=== PATIENT | female | born 1945 | race Caucasian/White ===

== ENCOUNTER 2018-02-18 16:53 | Inpatient (IN) | payer OTHER, MEDICARE ==
[~2018-02-18] VITALS: Ht 160 cm; Wt 82.6 kg
[~2018-02-18 16:53] MED LIST: ASPIRIN81 MG PO; BACTRIM 400 MG-1 TAB PO; BACTRIM DS 8001 TAB PO; BENADRYL 50 MG50 MG PO; CALCIUM ANTAC1000 MG PO; MEDROL4 M2 PO; MIRALAX17 GM PO; PREMARIN 0.3MG0.3 MG PO; PREMPRO LOW DOS1 TAB PO; PROAIR HFA0.09 MG/Ac INH; PROTONIX 40MG T40 MG PO; SINGULAIR10 MG PO; SYMBICORT 80/4.1 PUF INH; SYNTHROID0.1 MG PO; TESSALON PERLE100 M1 PO; TOPROL XL 25MG25 MG PO; VESICARE 5MG5 MG PO; VITAMIN D1000 IU PO; ZITHROMAX250 M2 PO
[2018-02-18 17:36] LABS: ABSOLUTE BASOPHIL COUNT 0 /CUMM (0.0-0.2); ABSOLUTE EOSINOPHIL COUNT 0 /CUMM (0.0-0.7); ABSOLUTE GRANULOCYTE CT 4.4 /CUMM (1.4-6.5); ABSOLUTE LYMPH COUNT 0.9 /CUMM (1.2-3.4); ABSOLUTE MONOCYTE COUNT 0.8 /CUMM (0.10-0.60); BASOPHIL % 0.3 % (0.0-2.0); EOSINOPHIL % 0.7 % (0-5); GRANULOCYTE % 71.7 % (42.2-75.2); HEMATOCRIT 41.5 % (37-47); MEAN CORPUSCULAR HGB 32.5 PG (27.0-31.0); MEAN CORPUSCULAR HGB CONC 33.8 G/DL (33.0-37.0); MEAN PLATELET VOLUME 7.3 FL (7.4-10.4); PLATELET COUNT 307 /CUMM (130-400); RBC DISTRIBUTION WIDTH 12.8 % (11.5-14.5); RED BLOOD CELL CT 4.32 /CUMM (4.20-5.40); WHITE BLOOD CELL COUNT 6.2 /CUMM (4.8-10.8)
--- NOTE | 2018-02-18 19:29 | CT SCAN REPORT ---
EXAMINATION: CT ABDOMEN AND PELVIS WITHOUT CONTRAST CLINICAL INFORMATION: Bilateral groin pain COMPARISON: None TECHNIQUE: Multidetector volumetric imaging was performed from the superior aspect of the liver through the pubic symphysis. Sagittal and coronal reformatted images were obtained on the technologist's workstation. DLP: 543 mGy-cm FINDINGS: LUNG BASES: The visualized lung bases are unremarkable. LIVER, GALLBLADDER, AND BILIARY TREE: Mild diffuse fatty infiltration of the liver. Geographic region of relative hyperattenuation along the superior, central aspect of the gallbladder fossa likely represents focal fatty sparing. No intrahepatic biliary ductal dilatation. The gallbladder is unremarkable with no evidence of radiopaque gallstones, gallbladder wall thickening, or obvious pericholecystic inflammatory changes. PANCREAS: Unremarkable. SPLEEN: Unremarkable. ADRENAL GLANDS: Unremarkable. KIDNEYS AND URETERS: The kidneys are normal in size, shape, and attenuation. No hydronephrosis, hydroureter, or calculi seen. No perinephric stranding. BLADDER: Unremarkable. GASTROINTESTINAL TRACT: No focal inflammatory process or obstruction. ABDOMINAL WALL: No significant hernia is appreciated. LYMPH NODES: Normal. VASCULAR: Extensive atherosclerotic calcifications. PELVIC VISCERA: Unremarkable. OSSEOUS STRUCTURES: No acute osseous abnormality. Extensive facet arthrosis of the lower lumbar spine. IMPRESSION: No focal inflammatory process or obstruction. Extensive atherosclerotic calcifications of the abdominal aorta. Mild diffuse fatty infiltration of the liver. No renal or ureteral calculi. No hydronephrosis.
--- NOTE | 2018-02-18 20:23 | CT SCAN REPORT ---
CT ANGIOGRAM NECK WITH CONTRAST CT ANGIOGRAM BRAIN WITH CONTRAST CLINICAL INFORMATION: Severe headache, weakness, and tremors. Neck pain radiating to the head. COMPARISON: Cervical spine MRI 07/31/2017 and brain MRI 11/24/2016. TECHNIQUE: Test bolus sequences followed by intravenous administration 95 mL of Optiray 320. Helical imaging was performed in the axial plane from the thoracic inlet to the skull vertex. Delayed postcontrast imaging of the head was also performed. The data was processed at the time study technologist workstation for generation of MIP sequences. Angled MIPs and volume rendered reformatted images were also generated at an offline 3D workstation. Stenoses are assessed in accordance with NASCET criteria unless otherwise indicated. FINDINGS: BRAIN: Limited assessment for blood products on the noncontrast study secondary to significant patient motion artifact. Global cerebral volume loss and mild chronic microangiopathy. There is no hydrocephalus, extra-axial surface collection, midline shift, or other herniation pattern. Yang to white matter differentiation is diffusely maintained without evidence of an evolved acute territorial infarct. The basilar cisterns are preserved. No significant soft tissue abnormality. No acute osseous abnormality. There is mild mucosal thickening within the right maxillary sinus. The remaining paranasal sinuses and the mastoid air cells are clear. CERVICAL SOFT TISSUES AND LUNG APICES: Imaged upper lungs are clear. No significant soft tissue findings within the neck. The patient is status post ACDF at the C4-C7 levels. There is severe disc volume loss at the junctional C7-T1 level and moderate disc volume loss at the junctional C3-C4 level. Severe left-sided hypertrophic facet arthropathy at C3-C4 encroaching upon the left neural foramen. Central canal not well assessed with CT. NECK CTA: Left vertebral artery arises from the aortic arch. Calcific atherosclerotic disease results in a moderate stenosis of the left vertebral artery origin. There is a moderate 50-60% stenosis involving the proximal left subclavian artery. The right vertebral artery is dominant. No significant ostial stenosis is visualized on either side. Both vertebral arteries are widely patent throughout their extracranial cervical course. Calcific atherosclerotic disease results in a 50% stenosis of the distal left common carotid artery and a less than 50% stenosis of the proximal left internal carotid artery. There is no significant stenosis involving the right proximal internal carotid artery. BRAIN CTA: There is normal opacification of major intracranial arteries. No focal flow-limiting stenosis, discrete proximal large artery occlusion, or saccular intradural aneurysm is identified. Timing of the contrast bolus allows assessment of the major dural venous sinuses, which all opacify normally. IMPRESSION: - No definite acute intracranial findings though assessment for blood products is limited given the degree of significant motion artifact on the noncontrast study. Global cerebral volume loss and mild chronic microangiopathy. - No evidence of arterial dissection. No acute arterial occlusions. - Calcific atherosclerotic disease results in a moderate stenosis of the left vertebral artery origin. There is a moderate 50-60% stenosis involving the proximal left subclavian artery. - Calcific atherosclerotic disease results in a 50% stenosis of the distal left common carotid artery and a less than 50% stenosis of the proximal left internal carotid artery. - The patient is status post ACDF at the C4-C7 levels. There is severe disc volume loss at the junctional C7-T1 level and moderate disc volume loss at the junctional C3-C4 level. Severe left-sided hypertrophic facet arthropathy at C3-C4 encroaching upon the left neural foramen. Central canal not well assessed with CT.
--- NOTE | 2018-02-18 20:55 | ED GENERAL ADULT ---
History of Present Illness General Chief Complaint: General Adult Stated Complaint: MURCIA, UPPER THIGH PAIN, LOW BACK PAIN Source: patient Exam Limitations: no limitations Vital Signs & Intake/Output Vital Signs & Intake/Output Vital Signs Date Time Temp Pulse Resp B/P B/P Pulse O2 O2 Flow FiO2 Mean Ox Delivery Rate 02/19 0020 97.8 62 20 152/64 96 Room Air 02/18 2334 97.9 59 18 174/88 97 02/18 2153 98.0 90 16 166/81 97 Room Air 02/18 2039 69 16 168/98 97 Room Air 02/18 1707 97.6 71 15 166/70 97 Room Air Room Air ED Intake and Output 02/19 0000 02/18 1200 Intake Total 1000 Output Total Balance 1000 Intake, IV 1000 Patient 180 lb Weight Weight Reported by Patient Measurement Method Allergies Coded Allergies: ELVA Inhibitors (DIZZINESS, NAUSEA 02/18/18) valsartan (DIZZY, NAUSEA 02/18/18) Reconcile Medications Albuterol Sulfate (Proair Hfa) 90 MCG HFA.AER.AD 2 PUF INH AD PRN ASTHMA ( Reported) Alprazolam 0.25 MG TABLET 1 TAB PO AD PRN ANXIETY (Reported) Aspirin (Ecotrin*) 81 MG TABLET.DR 1 TAB PO DAILY HEART/BLOOD (Reported) Azelastine/Fluticasone (Dymista Nasal [place]) (Unknown Strength) SPRAY.PUMP ( Unknown Dose) NASB AD UNKNOWN (Reported) Cholecalciferol (Vitamin D3) (Vitamin D) 2,000 UNIT TABLET 1 TAB PO DAILY SUPPLEMENT (Reported) Cyanocobalamin (Vitamin B-12) 1,000 MCG TABLET 1 TAB PO DAILY SUPPLEMENT ( Reported) Esomeprazole (Nexium) 40 MG CAPSULE.DR 1 CAP PO DAILY GI (Reported) Estrogens, Conjugated (Premarin) 0.3 MG TABLET 1 TAB PO DAILY HRT (Reported) Fluticasone-Salmeterol (Advair 100-50 Diskus) 100 MCG-50 MCG/DOSE BLST.W.DEV 1 PUF INH BID RESP. (Reported) Glycopyrrolate 2 MG TABLET 1 TAB PO DAILY MUCUS (Reported) Hydralazine HCl 100 MG TABLET 1 TAB PO TID BP (Reported) Hydrochlorothiazide 25 MG TABLET 1 TAB PO DAILY BP (Reported) Levothyroxine Sodium 112 MCG TABLET 1 TAB PO DAILY THYROID (Reported) Metoprolol Succ XL (Toprol Xl) 50 MG TAB 1 TAB PO DAILY HEART/BP (Reported) Montelukast Sodium (Singulair) 10 MG TABLET 1 TAB PO DAILY ALLERGIES/ASTHMA ( Reported) Triage Note: PT TO ED FOR C/C OF HEADACHE (PRESSURE), NECK PAIN AND BILATERAL GROIN PAIN. PT REPORTS SYMPTOMS STARTED MILDLY LAST NIGHT BUT THEN PROGRESSIVELY GOT WORSE. PT TOOK ADVIL TODAY WITHOUT IMPROVEMENT. RECENT DOSE INCREASE OF BP MEDS. Triage Nurses Notes Reviewed? yes Onset: Gradual Duration: day(s): Timing: recent history Injury Environment: home Severity: mild, moderate Modifying Factors: Improves With: rest. HPI: 72 yo woman h/o htn, multiple medical problems, presents with a constellation of symptoms, including headache, dizziness, weakness, difficulty ambulating, left sided chest pain which has been intermittent, lower abdominal, bilateral hip and lower back pain. She notes her symptoms have been getting worse over the past several days. She notes that her physician has been adjusting her blood pressure medications lateley. "The took me off everything... started me on valsartan, but that didn' t work, and so put me back on my old medications." She notes no fever, chills, dyspnea. She is otherwise well. Past History Travel History Traveled to [place] past 21 day No Medical History Any Pertinent Medical History? see below for history Cardiovascular: hypertension Respiratory: asthma Gastrointestinal: constipation, diverticulitis, GERD, irritable bowel syndrome Renal: urinary incontinence Endocrine: hypothyroidism Other Medical Hx: rosacea History of MRSA: No History of VRE: No History of CDIFF: No Surgical History Surgical History: non-contributory Psychosocial History Who do you live with Significant Other Services at Home None What is your primary language Jamaican Tobacco Use: Quit >30 days ago ETOH Use: denies use Illicit Drug Use: denies illicit drug use Family History Family History, If Any: Relation not specified for: FH: heart disease Hx Contributory? No Review of Systems Review of Systems Constitutional: Reports: no symptoms. EENTM: Reports: no symptoms. Respiratory: Reports: no symptoms. Cardiovascular: Reports: no symptoms. GI: Reports: no symptoms. Genitourinary: Reports: no symptoms. Musculoskeletal: Reports: no symptoms. Skin: Reports: no symptoms. Neurological/Psychological: Reports: no symptoms. Hematologic/Endocrine: Reports: no symptoms. Immunologic/Allergic: Reports: no symptoms. All Other Systems: Reviewed and Negative Physical Exam Physical Exam General Appearance: well developed/nourished, mild distress Head: atraumatic, normal appearance Eyes: Bilateral: normal appearance, PERRL, EOMI. Ears, Nose, Throat: normal pharynx, normal ENT inspection, slightly dry mucosa Neck: normal inspection, supple, full range of motion Respiratory: normal breath sounds, no respiratory distress, quiet respiration, lungs clear, left parasternal tenderness to palpation Cardiovascular: regular rate/rhythm Back: muscle spasm, no vertebral tenderness Extremities: normal inspection Neurologic/Psych: no motor/sensory deficits Skin: intact, normal color, warm/dry Core Measures ACS in differential dx? No CVA/TIA Diagnosis: No Sepsis Present: No Sepsis Focused Exam Completed? No Progress Differential Diagnoses I considered the following diagnoses in my evaluation of the patient: musculoskeletal pain vs angina vs other. Plan of Care: Orders Procedure Date/time Status Heart Healthy Diet 02/19 B Active CBC WITHOUT DIFFERENTIAL 02/19 0600 Active BASIC ELECTROLYTES PLUS BUN&CR 02/19 0600 Active TROPONIN LEVEL 02/19 0500 Active EKG 02/19 0500 Active URINE LYTES, SPOT 02/19 0221 Active Lab Add-on Test 02/19 0052 Active Weight 02/19 0027 Active Vital Signs 02/19 0027 Complete Teach/Educate 02/197 Active Pain Treatment and Response 02/19 0027 Active Nutritional Intake, Monitor 02/19 0027 Active Isolation 02/19 0027 Active Intake & Output 02/19 0027 Complete Patient Care Conference 02/197 Active Activity/Ambulation 02/197 Active Lab Add-on Test 02/19 UNK Active Precautions 02/19 UNK Active NIH Stroke Scale 02/19 UNK Active SODIUM 02/18 2330 Complete CREATINE PHOSPHOKINASE 02/18 2330 Complete TROPONIN LEVEL 02/18 2227 Complete EKG 02/18 2227 Active Lab Add-on Test 02/18 2225 Active PT Evaluate & Treat 02/19 2224 Active Saline Lock 02/19 2224 Active Pathway - chart 02/19 2224 Active House Staff 02/19 2224 Active Patient Data 02/19 2224 Active Code Status 02/19 2224 Active Saline Lock 02/19 2144 Active Misc Message 02/19 2144 Active ED Holding Orders 02/19 2144 Active Admit to inpatient 02/19 2144 Active Saline Lock 02/18 2134 Active Misc Message 02/18 2134 Active ED Holding Orders 02/18 2134 Active Admit to inpatient 02/18 2134 Active Vital Signs 02/18 2134 Active Code Status 02/18 2134 Complete THYROID STIMULATING HORMONE 02/18 1730 Complete PHOSPHORUS 02/18 1730 Complete SERUM OSMOLALITY 02/18 1730 Complete MAGNESIUM 02/18 1730 Complete FREE T4 02/18 1730 Complete URINALYSIS 02/18 171 Active TROPONIN LEVEL 02/18 171 Complete WESTERGREN SED RATE 02/18 171 Complete COMPREHENSIVE METABOLIC PANEL 02/18 171 Complete CBC WITHOUT DIFFERENTIAL 02/18 171 Complete EKG 02/18 1716 Active VTE Mechanical Prophylaxis 02/18 UNK Active Vital Signs 02/18 UNK Complete MISTAKE 02/18 UNK Active Telemetry/Batch Freezer Operator 02/18 UNK Active Intake & Output 02/18 UNK Active Current Medications Sig/Ava Start time Last Medication Dose Stop Time Status Admin Budesonide/ 2 PUF BID 02/19 0900 AC Formoterol Fumarate (SYMBICORT) Enoxaparin Sodium 40 MG DAILY 02/19 09 AC (Lovenox) Metoprolol Succinate 50 MG DAILY 02/19 0900 AC (Toprol Xl) Levothyroxine Sodium 0.112 MG DAILY AC 02/19 0700 AC (Synthroid) Omeprazole 40 MG DAILY AC 02/19 0700 AC (Prilosec) Albuterol Sulfate 2 PUF Q4P PRN 02/18 2315 AC (Ventolin) Alprazolam 0.25 MG DAILY NEEDED PRN 02/18 2315 AC (Xanax) 02/25 2314 Hydralazine HCl 100 MG TID 02/18 230 AC (Apresoline) Acetaminophen 650 MG Q6P PRN 02/18 2230 AC (Tylenol) Hydrocodone Bitart/ 1 TAB Q8P PRN 02/18 2230 AC Acetaminophen (Vicodin) Oxycodone/ 2 TAB Q8P PRN 02/18 2230 AC 02/19 Acetaminophen 0058 (Percocet) Sodium Chloride 1,000 ML ONCE ONE 02/18 2130 AC 02/18 (Normal Saline 0.9%) 02/199 2149 Laboratory Tests 02/18/18 2330: Creatine Kinase 113, Troponin I 0.01 02/18/18 1730: Anion Gap 13, Estimated GFR > 60, BUN/Creatinine Ratio 20.0, Glucose 96, Serum Osmolality 254 L, Calcium 10.6 H, Phosphorus 4.0, Magnesium 1.6, Total Bilirubin 1.3, AST 24, ALT 29, Alkaline Phosphatase 53, Troponin I < 0.01, Total Protein 7.8, Albumin 4.8, Globulin 3.0, Albumin/Globulin Ratio 1.6, TSH 0.690, Free T4 2.61 H, CBC w Diff NO MAN DIFF REQ, RBC 4.32, MCV 96.0, MCH 32.5 H, MCHC 33.8, RDW 12.8, MPV 7.3 L, Gran % 71.7, Lymphocytes % 14.6 L, Monocytes % 12.7 H, Eosinophils % 0.7, Basophils % 0.3, Absolute Granulocytes 4.4, Absolute Lymphocytes 0.9 L, Absolute Monocytes 0.8 H, Absolute Eosinophils 0, Absolute Basophils 0, ESR Westergren 10 Diagnostic Imaging: Viewed by Me: CT Scan. Discussed w/RAD: CT Scan. Radiology Impression: PATIENT: Gely GRAY PRESENT AGE: 72 PATIENT ACCOUNT NO: [id number] : 44 LOCATION: [facility] ORDERING PHYSICIAN: Jarrod GORE SERVICE DATE: 02/18/18 EXAM TYPE: CAT - CT ABD & PELVIS W/O IV CONTRAS EXAMINATION: CT ABDOMEN AND PELVIS WITHOUT CONTRAST CLINICAL INFORMATION: Bilateral groin pain COMPARISON: None TECHNIQUE: Multidetector volumetric imaging was performed from the superior aspect of the liver through the pubic symphysis. Sagittal and coronal reformatted images were obtained on the technologist's workstation. DLP: 543 mGy-cm FINDINGS: LUNG BASES : The visualized lung bases are unremarkable. LIVER, GALLBLADDER, AND BILIARY TREE: Mild diffuse fatty infiltration of the liver. Geographic region of relative hyperattenuation along the superior, central aspect of the gallbladder fossa likely represents focal fatty sparing. No intrahepatic biliary ductal dilatation. The gallbladder is unremarkable with no evidence of radiopaque gallstones, gallbladder wall thickening, or obvious pericholecystic inflammatory changes. PANCREAS: Unremarkable. SPLEEN: Unremarkable. ADRENAL GLANDS: Unremarkable. KIDNEYS AND URETERS: The kidneys are normal in size, shape, and attenuation. No hydronephrosis, hydroureter, or calculi seen. No perinephric stranding. BLADDER: Unremarkable. GASTROINTESTINAL TRACT: No focal inflammatory process or obstruction. ABDOMINAL WALL: No significant hernia is appreciated. LYMPH NODES: Normal. VASCULAR: Extensive atherosclerotic calcifications. PELVIC VISCERA: Unremarkable. OSSEOUS STRUCTURES: No acute osseous abnormality. Extensive facet arthrosis of the lower lumbar spine. IMPRESSION: No focal inflammatory process or obstruction. Extensive atherosclerotic calcifications of the abdominal aorta. Mild diffuse fatty infiltration of the liver. No renal or ureteral calculi. No hydronephrosis. DICTATED BY: Yobany Beal MD DATE/ TIME DICTATED:02/18/181919 FOOD SERVICE DIRECTOR:RAÚL DATE/TIME TRANSCRIBED: 02/18/181919 CONFIDENTIAL, DO NOT COPY WITHOUT APPROPRIATE AUTHORIZATION. < Electronically signed in Other Vendor System> SIGNED BY: Yobany Beal MD 02/18/181928, PATIENT: Gely GRAY PRESENT AGE: 72 PATIENT ACCOUNT NO: [id number] : 44 LOCATION: [facility] ORDERING PHYSICIAN: Jarrod GORE SERVICE DATE: 02/18/18 EXAM TYPE: CAT - CT HEAD ANGIOGRAM; CT NECK ANGIOGRAM CT ANGIOGRAM NECK WITH CONTRAST CT ANGIOGRAM BRAIN WITH CONTRAST CLINICAL INFORMATION: Severe headache, weakness, and tremors. Neck pain radiating to the head. COMPARISON: Cervical spine MRI 03/2017 and brain MRI 11/24/2016. TECHNIQUE: Test bolus sequences followed by intravenous administration 95 mL of Optiray 320. Helical imaging was performed in the axial plane from the thoracic inlet to the skull vertex. Delayed postcontrast imaging of the head was also performed. The data was processed at the system technologist workstation for generation of MIP sequences. Angled MIPs and volume rendered reformatted images were also generated at an offline 3D workstation. Stenoses are assessed in accordance with NASCET criteria unless otherwise indicated. FINDINGS: BRAIN: Limited assessment for blood products on the noncontrast study secondary to significant patient motion artifact. Global cerebral volume loss and mild chronic microangiopathy. There is no hydrocephalus , extra-axial surface collection, midline shift, or other herniation pattern. Yang to white matter differentiation is diffusely maintained without evidence of an evolved acute territorial infarct. The basilar cisterns are preserved. No significant soft tissue abnormality. No acute osseous abnormality. There is mild mucosal thickening within the right maxillary sinus. The remaining paranasal sinuses and the mastoid air cells are clear. CERVICAL SOFT TISSUES AND LUNG APICES: Imaged upper lungs are clear. No significant soft tissue findings within the neck. The patient is status post ACDF at the C4-C7 levels. There is severe disc volume loss at the junctional C7-T1 level and moderate disc volume loss at the junctional C3-C4 level. Severe left-sided hypertrophic facet arthropathy at C3-C4 encroaching upon the left neural foramen. Central canal not well assessed with CT. NECK CTA: Left vertebral artery arises from the aortic arch. Calcific atherosclerotic disease results in a moderate stenosis of the left vertebral artery origin. There is a moderate 50-60% stenosis involving the proximal left subclavian artery. The right vertebral artery is dominant. No significant ostial stenosis is visualized on either side. Both vertebral arteries are widely patent throughout their extracranial cervical course. Calcific atherosclerotic disease results in a 50% stenosis of the distal left common carotid artery and a less than 50% stenosis of the proximal left internal carotid artery. There is no significant stenosis involving the right proximal internal carotid artery. BRAIN CTA: There is normal opacification of major intracranial arteries. No focal flow -limiting stenosis, discrete proximal large artery occlusion, or saccular intradural aneurysm is identified. Timing of the contrast bolus allows assessment of the major dural venous sinuses, which all opacify normally. IMPRESSION: - No definite acute intracranial findings though assessment for blood products is limited given the degree of significant motion artifact on the noncontrast study. Global cerebral volume loss and mild chronic microangiopathy. - No evidence of arterial dissection. No acute arterial occlusions. - Calcific atherosclerotic disease results in a moderate stenosis of the left vertebral artery origin. There is a moderate 50-60% stenosis involving the proximal left subclavian artery. - Calcific atherosclerotic disease results in a 50% stenosis of the distal left common carotid artery and a less than 50% stenosis of the proximal left internal carotid artery. - The patient is status post ACDF at the C4-C7 levels. There is severe disc volume loss at the junctional C7-T1 level and moderate disc volume loss at the junctional C3-C4 level. Severe left-sided hypertrophic facet arthropathy at C3-C4 encroaching upon the left neural foramen. Central canal not well assessed with CT. DICTATED BY: Donal Barbosa MD DATE/TIME DICTATED:02/18/181958 FOOD SERVICE DIRECTOR:RAÚL DATE/TIME TRANSCRIBED:02/18/181958 CONFIDENTIAL, DO NOT COPY WITHOUT APPROPRIATE AUTHORIZATION. <Electronically signed in Other Vendor System> SIGNED BY: Donal Barbosa MD 02/18/182022 Initial ED EKG: none Departure Departure Disposition: STILL A PATIENT Condition: Stable Clinical Impression Primary Impression: Hyponatremia Secondary Impressions: Chest pain Referrals: Juan Jose Escalante MD (PCP/Family) Departure Forms: Customer Survey General Discharge Information Admission Note Spoke With: Bishnu Mora MD Documentation of Exam: Documentation of any treatments & extenuating circumstances including Concerns Regarding Discharge (functional status, medication knowledge or non-compliance, living conditions, etc.) that warrant an admission rather than observation: pt with several constitutional symptoms, with a sodium 121, exam notable for slightly dry mucosa.... pt to be admitted for electrolyte management. Critical Care Note Critical Care Note Critical Care Time: non-applicable
[2018-02-18] MEDS ORDERED: DYMISTA NASAL S23 GM NASB (21:33)
[2018-02-18] MEDS ORDERED: LEVOTHYROXINE112 MCG PO (21:34)
[2018-02-18] MEDS ORDERED: ADVAIR 100-501 EACH INH (21:34)
[2018-02-18] MEDS ORDERED: PREMARIN0.3 M1 PO (21:34)
[2018-02-18] MEDS ORDERED: SINGULAIR10 M1 PO (21:34)
[2018-02-18] MEDS ORDERED: HYDRALAZINE HC100 M1 PO (21:35)
[2018-02-18] MEDS ORDERED: HYDROCHLOROTHIA25 M1 PO (21:35)
[2018-02-18] MEDS ORDERED: NEXIUM40 M1 PO (21:35)
[2018-02-18] MEDS ORDERED: TOPROL XL50 M1 PO (21:35)
[2018-02-18] MEDS ORDERED: VITAMIN B-121000 MC3 PO (21:36)
[2018-02-18] MEDS ORDERED: PROAIR HFA8.5 GM INH (21:36)
[2018-02-18] MEDS ORDERED: ASPIRIN EC81 M1 PO (21:36)
[2018-02-18] MEDS ORDERED: VITAMIN D2000 UNI1 PO (21:36)
[2018-02-18] MEDS ORDERED: ALPRAZOLAM0.25 M1 PO (21:37)
[2018-02-18] MEDS ORDERED: GLYCOPYRROLATE2 MG PO (21:38)
--- NOTE | 2018-02-18 23:09 | History & Physical ---
Elvin PORTILLO,Lucia 02/18/18 6446: General Information and HPI MD Statement: I have seen and personally examined Gely GRAY and documented this H&P. The patient is a 72 year old F who presented with a patient stated chief complaint of [diffuse pain, weakness, lightheadedness]. Source of Information: patient, family, old records Exam Limitations: no limitations History of Present Illness: Patient is a 72-year-old female with past medical history of hypertension, hypothyroidism, asthma, GERD, diverticulitis, IBS, constipation, chronic UTI, rosacea, degenerative disc disease of the lumbar region, status post cervical fusion presenting this admission with multiple complaints of head, neck, groin, chest pain and lethargy. Patient reports she has been feeling weak and lethargic over the past day which has worsened on day of admission. Patient reports diffuse head, neck and groin pain. Patient also reports that she has been having lightheadedness since the beginning of this year after having cranial nerve palsy. Patient is being followed by Dr. Hernandez and is not on any medications at this time. Patient states this lightheadedness is constant when she is walking or standing and patient has had difficulty walking. Patient reports that her head and neck pain start at the back of her head and radiate up and down. Describes the pain as a constant pressure sensation radiating into 6 out of 10 in severity. Patient reports taking Advil and Tylenol for the pain which has not helped. Patient was given morphine in the ED and reports that has helped. Patient also reports that she was having left breast pain and was seen by her material crew supervisor, Esteban Davey MD. Patient describes the pain as nonradiating pressure which does not change with exertion. Reports that she is not currently having this pain. Reports pain is accompanied with palpitations. Denies shortness of breath, nausea/vomiting, diaphoresis. Patient states that her medication, hydralazine was increased from 50 mg 3 times a day to 100 mg 3 times a day. Patient reports that she has only taken 100 mg on day of admission. Allergies/Medications Allergies: Coded Allergies: ELVA Inhibitors (DIZZINESS, NAUSEA 02/18/18) valsartan (DIZZY, NAUSEA 02/18/18) Home Med list Albuterol Sulfate (Proair Hfa) 90 MCG HFA.AER.AD 2 PUF INH AD PRN ASTHMA ( Reported) Alprazolam 0.25 MG TABLET 1 TAB PO AD PRN ANXIETY (Reported) Aspirin (Ecotrin*) 81 MG TABLET.DR 1 TAB PO DAILY HEART/BLOOD (Reported) Azelastine/Fluticasone (Dymista Nasal Chunky) (Unknown Strength) SPRAY.PUMP ( Unknown Dose) NASB AD UNKNOWN (Reported) Cholecalciferol (Vitamin D3) (Vitamin D) 2,000 UNIT TABLET 1 TAB PO DAILY SUPPLEMENT (Reported) Cyanocobalamin (Vitamin B-12) 1,000 MCG TABLET 1 TAB PO DAILY SUPPLEMENT ( Reported) Esomeprazole (Nexium) 40 MG CAPSULE.DR 1 CAP PO DAILY GI (Reported) Estrogens, Conjugated (Premarin) 0.3 MG TABLET 1 TAB PO DAILY HRT (Reported) Fluticasone-Salmeterol (Advair 100-50 Diskus) 100 MCG-50 MCG/DOSE BLST.W.DEV 1 PUF INH BID RESP. (Reported) Glycopyrrolate 2 MG TABLET 1 TAB PO DAILY MUCUS (Reported) Hydralazine HCl 100 MG TABLET 1 TAB PO TID BP (Reported) Hydrochlorothiazide 25 MG TABLET 1 TAB PO DAILY BP (Reported) Levothyroxine Sodium 112 MCG TABLET 1 TAB PO DAILY THYROID (Reported) Metoprolol Succ XL (Toprol Xl) 50 MG TAB 1 TAB PO DAILY HEART/BP (Reported) Montelukast Sodium (Singulair) 10 MG TABLET 1 TAB PO DAILY ALLERGIES/ASTHMA ( Reported) Past History Travel History Traveled to [place] past 21 day No Medical History Cardiovascular: hypertension Respiratory: asthma Gastrointestinal: constipation, diverticulitis, GERD, irritable bowel syndrome Renal: urinary incontinence Endocrine: hypothyroidism Other Medical Hx: rosacea History of MRSA: No History of VRE: No History of CDIFF: No Surgical History Surgical History: non-contributory Past Family/Social History Family History Relations & Conditions if any Relation not specified for: FH: heart disease Psychosocial History Services at Home: None ETOH Use: denies use Illicit Drug Use: denies illicit drug use Review of Systems Review of Systems Constitutional: Reports: see HPI. Exam & Diagnostic Data Last 24 Hrs of Vital Signs/I&O Vital Signs Date Time Temp Pulse Resp B/P B/P Pulse O2 O2 Flow FiO2 Mean Ox Delivery Rate 02/19 0723 97.6 56 20 136/70 93 Room Air 02/19 0020 97.8 62 20 152/64 96 Room Air 02/18 2334 97.9 59 18 174/88 97 02/18 2153 98.0 90 16 166/81 97 Room Air 02/18 2039 69 16 168/98 97 Room Air 02/18 1707 97.6 71 15 166/70 97 Room Air Room Air Intake & Output 02/19 0800 02/19 0000 02/18 1600 Intake Total 120 1000 Output Total 550 Balance -430 1000 Intake, IV 1000 Intake, Oral 120 Output, Urine 550 Patient 180 lb Weight Weight Reported by Patient Measurement Method Physical Exam General Appearance Alert, Oriented X3, Cooperative, No Acute Distress Skin No Rashes Skin Temp/Moisture Exam: Warm/Dry HEENT Atraumatic, PERRLA, EOMI, Mucous Membr. moist/pink Neck Supple, No JVD, No thryomegaly, +2 Carotid Pulse wo Bruit Lymphatic Cervical nl Cardiovascular Regular Rate, Normal S1, Normal S2, No Murmurs Lungs Clear to Auscultation, Normal Air Movement Abdomen Normal Bowel Sounds, Soft, No Tenderness, No Hepatospenomegaly, No Masses Neurological Normal Speech, Strength at 5/5 X4 Ext, Normal Tone, Sensation Intact, Cranial Nerves 3-12 NL, Reflexes 2+ Extremities No Clubbing, No Cyanosis, No Edema, Normal Pulses, No Tenderness/ Swelling Vascular Normal Pulses, Pulses Symmetrical Last 24 Hrs of Labs/Andrea: Laboratory Tests 02/19/18 0430: Urine Color YEL, Urine Clarity CLEAR, Urine pH 7.0, Ur Specific [place] 1.010, Urine Protein NEG, Urine Ketones 15 H, Urine Nitrite NEG, Urine Bilirubin NEG, Urine Urobilinogen 0.2, Ur Leukocyte Esterase NEG, Ur Microscopic EXAM NOT REQUIRED, Urine Hemoglobin NEG, Urine Glucose NEG 02/19/18 0430: Urine Osmolality 308, Ur Random Creatinine 47.7, Ur Random Sodium 29 L, Ur Random Potassium 25.6, Fraction Sodium Excret 0.3 02/18/18 2330: Creatine Kinase 113, Troponin I 0.01 02/18/18 1730: Anion Gap 13, Estimated GFR > 60, BUN/Creatinine Ratio 20.0, Glucose 96, Serum Osmolality 254 L, Calcium 10.6 H, Phosphorus 4.0, Magnesium 1.6, Total Bilirubin 1.3, AST 24, ALT 29, Alkaline Phosphatase 53, Troponin I < 0.01, Total Protein 7.8, Albumin 4.8, Globulin 3.0, Albumin/Globulin Ratio 1.6, TSH 0.690, Free T4 2.61 H, CBC w Diff NO MAN DIFF REQ, RBC 4.32, MCV 96.0, MCH 32.5 H, MCHC 33.8, RDW 12.8, MPV 7.3 L, Gran % 71.7, Lymphocytes % 14.6 L, Monocytes % 12.7 H, Eosinophils % 0.7, Basophils % 0.3, Absolute Granulocytes 4.4, Absolute Lymphocytes 0.9 L, Absolute Monocytes 0.8 H, Absolute Eosinophils 0, Absolute Basophils 0, ESR Westergren 10 Assessment/Plan Assessment: Patient is a 72-year-old female with past medical history of hypertension, hypothyroidism, asthma, GERD, diverticulitis, IBS, constipation, chronic UTI, rosacea, degenerative disc disease of the lumbar region, status post cervical fusion presenting this admission with multiple complaints of head, neck, groin, chest pain and weakness. Patient will be admitted to the telemetry floor for management of the followin. Chest pain, rule out ACS 2. Euvolemic Hypoosmolar Hyponatremia - likely secondary to medication 3. Chronic conditions Plan: Continuous telemetry monitoring Serial EKG and troponins Cardiology consult placed with Esteban Davey MD Gentle IV hydration with normal saline at 75 mL per hour Continue monitoring sodium every 4 hours Urine osm, lytes A.m. cortisol, TSH Nephrology consult for hyponatremia Continue home medications except for hydrochlorothiazide DVT prophylaxis: Lovenox Diet: Heart healthy Code: Full code As Ranked By This Provider Problem List: 1. Chest pain 2. Hyponatremia Core Measures/Misc (07/12) Acute Coronary Syndrome ACS Diagnosis: No Congestive Heart Failure Congestive Heart Failure Diagnosis No Cerebrovascular Accident CVA/TIA Diagnosis: No VTE (View Protocol) VTE Risk Factors Age>40 No Mechanical VTE Prophylaxis d/t N/A MechProphylax Ordered No VTE Pharm Prophylaxis d/t NA PharmProphylax ordered Sepsis (View protocol) Sepsis Present: No Paresh Messina 02/19/18 0452: Resident Review Statement Resident Statement: examined this patient, discussed with music internship, agreed with music internship, discussed with family, reviewed EMR data (avail), discussed with nursing , discussed with case mgmt, reviewed images, amended to note Other Findings: This is 72-year-old female with medical history of HTN, asthma, hypothyroidism, GERD, diverticulitis, IBS, degenerative disease of lumbar spine, cervical spine surgery, chronic constipation,urinary incontinence. She presented to the emergency department with chief complain off headache, upper thigh and low back pain. Also, she report left sided chest pain that is associated with heart racing and dizziness, lightheaded and generalized weakness. The pain was getting progressively worse so she called in for urgent appointment with material crew supervisor yesterday, underwent ECG and she was told that everything was normal. and her material crew supervisor increased her hydralazine 100 mg times daily as her BP was elevated. Her blood pressure has been difficult to treat and there had been several changes in her antihypertensives, patient does not recall all the changes. At the image department patient received 2 mg of IV morphine, overdose of Tylenol and started on 150 mL of normal saline IVF. CTA of head and neck was done did not show any No evidence of arterial dissection. No acute arterial occlusions. CT SCAN of abdomen and pelvis was done and show mild diffuse fatty infiltrative liver. Patient noted to have hyponatremia of 121 visits associated with hypochloride of 84. Physical examination, lab and imaging as above. Problem list: - Chest pain rule out ACS - Hyponatremia that can be due to medications - Generalized weakness Plan: - Admit to telemetry floor - Vitals every shift, fall precaution - Serial troponin and EKGs - echo in a.m. if significant increase in troponin or EKG changes. - Cardiology consult in a.m. - Continue aspirin, statin, beta issa and hydralazine. -Follow-up urine osmolality, sodium every 4 hours, if sodium appropriately improving then restart gentle hydration with normal saline at 75 cc per hour - Obtain Check TSH, free T4 , AM cortisol level, CPK - Nephrology consult in A.M. - Physical therapy consultation in A.M. - Heart healthy diet. - Pain pathway. - DVT prophylaxis subcutaneous Lovenox - Full code. Bishnu Mora 02/19/18 0518: Attending MD Review Statement Attending Statement Attending MD Statement: examined this patient, discuss w/resident/PA/ICE CREAM VENDOR, agreed w/resident/PA/ICE CREAM VENDOR, reviewed EMR data (avail), reviewed images, amended to note Attending Assessment/Plan: CC: Multiple complaints PMH: HTN, asthma, hypothyroidism, GERD, diverticulitis, IBS-c, degenerative disease of lumbar spine, cervical spine surgery Patient came to ER for multiple complaints mostly headache, neck pain, bilateral groin pain that started yesterday, he was feeling very poorly and lethargic and could not sleep overnight, this morning symptoms persisted so she came to ER. Headache is in the occipital area, nonradiating, not associated with visual changes. Patient has neck pain, radiating to neck but now symptomatically improved. She has chronic low back pain. Bilateral groin pain, nonradiating, not associated with swelling of joints. Patient also has been noticing left-sided chest pain, pressure-like, nonradiating, associated with palpitations and heartburn, not related to exertion or rest, since one month. The pain was getting progressively worse so she called in for urgent appointment with material crew supervisor yesterday, underwent ECG and she was told that everything was normal. After going home her chest pain persisted and she had above-mentioned several complaints so she decided to come to ER. Denies any fever, chills, cough , expectoration, urinary burning, frequency, presyncope or fall. Patient has been having lightheadedness since approximately 1 year on and off and she had one episode of vomiting today. Her blood pressure has been difficult to treat and there had been several changes in her antihypertensives, patient does not recall all the changes. Vitals: Afebrile, temperature 97.6, pulse 71, RR 15, blood pressure 166/70, saturating 97% on room air. On exam: A O 3, cooperative, no acute distress, neck supple, ROM normal, head atraumatic, JVD normal, no lymphadenopathy, mucosa moist, no focal neurological deficit, no dependent edema, no obvious skin rashes or inflammation CVS: S1-S2, RRR. RS: Clear to auscultate bilaterally. Abdomen: Soft, NT, ND, bowel sounds present. Mild tenderness in groin area bilaterally on palpation but normal range of motion, peripheral pulses perfusion intact CTA head and neck - No definite acute intracranial findings though assessment for blood products is limited given the degree of significant motion artifact on the noncontrast study. Global cerebral volume loss and mild chronic microangiopathy. - No evidence of arterial dissection. No acute arterial occlusions. - Calcific atherosclerotic disease results in a moderate stenosis of the left vertebral artery origin. There is a moderate 50-60% stenosis involving the proximal left subclavian artery. - Calcific atherosclerotic disease results in a 50% stenosis of the distal left common carotid artery and a less than 50% stenosis of the proximal left internal carotid artery. - The patient is status post ACDF at the C4-C7 levels. There is severe disc volume loss at the junctional C7-T1 level and moderate disc volume loss at the junctional C3-C4 level. Severe left-sided hypertrophic facet arthropathy at C3-C4 encroaching upon the left neural foramen. Central canal not well assessed with CT. CT abdomen pelvis without IV contrast: No focal inflammatory process or obstruction. Extensive atherosclerotic calcifications of the abdominal aorta. Mild diffuse fatty infiltration of the liver. No renal or ureteral calculi. No hydronephrosis. CXR: Portable chest x-ray shows no acute findings and no change compared to prior study allowing for positioning differences Assessment and plan 72-year-old female with above-mentioned past medical history presented in ER for occipital headache, neck pain and groin pain. All the symptoms are better now. Probably neck pain and groin pain secondary to osteoarthritis. Patient also complains of chest pain which is atypical. Complete examination unremarkable but patient was found to have sodium of 121 and chloride of 84 incidentally. Her previous labs for approximately a month back and she was told that everything was normal. There had been several changes in her medications for blood pressure control, initially she was on hydrochlorothiazide which was stopped and then restarted again. She appears mildly dehydrated. Other than mild dehydration and hydrochlorothiazide no obvious cause of hyponatremia identified. We will get nephrology involved for further evaluation. + Chest pain rule out ACS + Hyponatremia + History of HTN, asthma, hypothyroidism, GERD, diverticulitis, IBS-c, degenerative disease of lumbar spine, cervical spine surgery - Admit to telemetry - Continuous telemetry monitoring - Serial troponin and EKGs - 2-D echo in a.m. if significant increase in troponin - Cardiology consult in a.m. - Continue aspirin, statin, beta issa -Follow-up urine osmolality, sodium every 4 hours, if sodium appropriately increasing then continue gentle hydration with normal saline at 75 mL per hour - Check TSH, a.m. cortisol, CPK - Nephrology consult - Hold HCTZ, continue other medications
--- NOTE | 2018-02-18 23:11 | RADIOLOGY REPORT ---
EXAMINATION: XR PORTABLE CHEST CLINICAL INFORMATION: Chest pain COMPARISON: Chest x-ray 12/28/2014 TECHNIQUE: Portable frontal view of the chest was obtained. FINDINGS: Heart size is normal. The aorta is mildly tortuous. There is no focal consolidation or atelectasis seen. There is no pneumothorax or pleural effusion. Cervical spine fusion hardware is noted unchanged. IMPRESSION: Portable chest x-ray shows no acute findings and no change compared to prior study allowing for positioning differences.
[2018-02-19 00:20] VITALS: BP 152/64
--- NOTE | 2018-02-19 05:20 | Admission Certification ---
Admission Certification Certification Statement - As attending physician, I certify that at the time of - admission, based on clinical presentation, severity of - symptoms, need for further diagnostic testing and - therapeutic interventions, and risk of adverse outcomes - without in-hospital treatment, in my clinical assessment, - this patient requires an acute hospital stay for a minimum - of two nights or longer. I have also considered psychsocial - factors such as support system, advanced age, financial - issues, cognitive issues, and failed out-patient treatments, - past re-admission history, safety of patient, and lack of - compliance as applicable. Specific rationale supporting this admission is: Hyponatremia, chest pain rule out ACS
[2018-02-19 07:23] VITALS: BP 136/70
--- NOTE | 2018-02-19 07:27 | PN- Housestaff ---
Neville PORTILLO,Ruchi 02/19/18 0727: Subjective Follow-up For: + Chest pain rule out ACS + Hyponatremia + History of chronic medical conditions Tele-Events Since Last Visit: No overnight events Subjective: Patient was seen and examined at bedside, she continues to complain of dizziness when she tries to move out of bed, in addition to complaints of nausea. Denies any chest pain, fever, chills, diarrhea or constipation Review of Systems Constitutional: Reports: see HPI. Denies: no symptoms. Objective Last 24 Hrs of Vital Signs/I&O Vital Signs Date Time Temp Pulse Resp B/P B/P Pulse O2 O2 Flow FiO2 Mean Ox Delivery Rate 02/19 0929 67 120/64 02/19 0926 67 120/64 02/19 0911 67 120/64 02/19 0800 Room Air 02/19 0723 97.6 56 20 136/70 93 Room Air 02/19 0020 97.8 62 20 152/64 96 Room Air 02/18 2334 97.9 59 18 174/88 97 02/18 2153 98.0 90 16 166/81 97 Room Air 02/18 2039 69 16 168/98 97 Room Air 02/18 1707 97.6 71 15 166/70 97 Room Air Room Air Intake & Output 02/19 1600 02/19 0800 02/19 0000 Intake Total 120 1000 Output Total 550 Balance -430 1000 Intake, IV 1000 Intake, Oral 120 Output, Urine 550 Patient 180 lb Weight Weight Reported by Patient Measurement Method Physical Exam General Appearance: Alert, Oriented X3, Cooperative, No Acute Distress HEENT: Atraumatic, PERRLA, EOMI, Mucous Membr. moist/pink Neck: Supple, No JVD Cardiovascular: Normal S1, Normal S2 Lungs: Clear to Auscultation Abdomen: Normal Bowel Sounds, Soft, No Tenderness Extremities: No Clubbing, No Cyanosis, No Edema Assessment/Plan Assessment: Patient is a 72-year-old female with past medical history of hypertension, hypothyroidism, asthma, GERD, diverticulitis, IBS, constipation, chronic UTI, rosacea, degenerative disc disease of the lumbar region, status post cervical fusion presenting this admission with multiple complaints of head, neck, groin, chest pain and weakness. Patient will be admitted to the telemetry floor for management of the followin. Chest pain, rule out ACS 2. Euvolemic Hyponatremia most likely due to poor oral intake 3. Chronic conditions Plan: Continue telemetry monitoring Serial EKG and troponins ruled out ACS Cardiology recommendation appreciated Gentle IV hydration with normal saline at 75 mL per hour Continue monitoring sodium every 12 hours, sodium is slowly improving Urine showed urinary sodium 29, urine osmolarity 308, FeNa 0.3 Continue to hold hydrochlorothiazide Fluid restriction to 1000 cc per day and if no improvement can increase it to 800 cc per day A.m. cortisol, was 3.8, will consider cosyntropin stimulation test in AM CT with runoff study for possible femoral artery stenosis secondary to abdominal aortic calcification Will give normal saline 500 cc [address] angiogram tomorrow Nephrology recommendation appreciated Continue home medications except for hydrochlorothiazide DVT prophylaxis: Lovenox Diet: Heart healthy Code: Full code Problem List: 1. Hyponatremia Pain Ratin Pain Location: back and legs Pain Goal: Remain pain free Pain Plan: pathway Tomorrow's Labs & Rationales: cbc bep Deyanira Gallo MD 02/19/18 1330: Attending MD Review Statement Attending Statement Attending MD Statement: examined this patient, discuss w/resident/PA/EMERGENCY ROOM CLINICIAN, agreed w/resident/PA/EMERGENCY ROOM CLINICIAN, reviewed EMR data (avail) Attending Assessment/Plan: 72F PMH HTN, asthma, hypothyroidism, GERD, diverticulitis, IBS-c, degenerative disease of lumbar spine, cervical spine surgery, admitted with complaints of occipital headache, left groin pain, and mid-sternal chest pain. Chest pain was non-exertional and not associated with SOB, diaphoresis, lightheadedness, or palpitations, and serial EKG and troponins were negative. She was incidentally found to have a sodium level of 121. Patient feels better this morning. She still reports left inguinal pain. On examination and palpation there are no nodules or masses present, and it is only mildly tender. She denies dysuria or hematuria. Sodium increased to 124 this morning, cortisol level 3.8. CT abdomen/pelvis without contrast is negative aside from atherosclerosis of the abdominal aorta. 1. Hyponatremia 2. Hypocortisolemia 3. Left inguinal pain 4. Occipital headache 5. Chest pain at rest Plan - Continue on telemetry - Perform ACTH stimulation test - Follow nephrology and cardiology recommendations - Trend sodium q6h for 24 hours, then q12h - Obtain aortic angiogram with runoff to evaluate inguinal pain in this patient with severe aortic atherosclerosis - Continue home medications - DVT PPx
[2018-02-19 08:13] LABS: ABSOLUTE BASOPHIL COUNT 0 /CUMM (0.0-0.2); ABSOLUTE EOSINOPHIL COUNT 0.1 /CUMM (0.0-0.7); ABSOLUTE GRANULOCYTE CT 4.4 /CUMM (1.4-6.5); ABSOLUTE MONOCYTE COUNT 0.8 /CUMM (0.10-0.60); BASOPHIL % 0.5 % (0.0-2.0); EOSINOPHIL % 1.1 % (0-5); GRANULOCYTE % 68.7 % (42.2-75.2); HEMATOCRIT 37.4 % (37-47); MEAN CORPUSCULAR HGB 33.3 PG (27.0-31.0); MEAN CORPUSCULAR HGB CONC 34.4 G/DL (33.0-37.0); MEAN CORPUSCULAR VOLUME 96.8 FL (81.0-99.0); MEAN PLATELET VOLUME 8.1 FL (7.4-10.4); PLATELET COUNT 279 /CUMM (130-400); RBC DISTRIBUTION WIDTH 12.6 % (11.5-14.5); RED BLOOD CELL CT 3.87 /CUMM (4.20-5.40); WHITE BLOOD CELL COUNT 6.3 /CUMM (4.8-10.8)
[2018-02-19 09:11] VITALS: BP 120/64
--- NOTE | 2018-02-19 10:56 | Cons- Cardiology ---
General Information and HPI Consulting Request Date of Consult: 02/19/18 Requested By: Deyanira Gallo MD Reason for Consult: Chest pain Source of Information: patient, old records History of Present Illness: This is a 72-year-old female with a past medical history of hypertension with side effects to multiple agents in the past, aortic regurgitation, degenerative disc disease, asthma, hypothyroidism, GERD, and urinary incontinence who presented to [facility] with chief complaints of neck pain, back pain, and groin pain along with some headache. She does have some intermittent dizziness which is chronic. She also had some sharp left-sided chest pain with out associated shortness of breath; nonexertional. I recently seen her in my office for uncontrolled blood pressure and increased her hydralazine. She reports no decrease in p.o. intake. She does have frequent urination which she reports is due to chronic urinary incontinence. She did report some nausea. Allergies/Medications Allergies: Coded Allergies: ELVA Inhibitors (DIZZINESS, NAUSEA 02/18/18) valsartan (DIZZY, NAUSEA 02/18/18) Home Med List: Albuterol Sulfate (Proair Hfa) 90 MCG HFA.AER.AD 2 PUF INH AD PRN ASTHMA ( Reported) Alprazolam 0.25 MG TABLET 1 TAB PO AD PRN ANXIETY (Reported) Aspirin (Ecotrin*) 81 MG TABLET.DR 1 TAB PO DAILY HEART/BLOOD (Reported) Azelastine/Fluticasone (Dymista Nasal [place]) (Unknown Strength) SPRAY.PUMP ( Unknown Dose) NASB AD UNKNOWN (Reported) Cholecalciferol (Vitamin D3) (Vitamin D) 2,000 UNIT TABLET 1 TAB PO DAILY SUPPLEMENT (Reported) Cyanocobalamin (Vitamin B-12) 1,000 MCG TABLET 1 TAB PO DAILY SUPPLEMENT ( Reported) Esomeprazole (Nexium) 40 MG CAPSULE.DR 1 CAP PO DAILY GI (Reported) Estrogens, Conjugated (Premarin) 0.3 MG TABLET 1 TAB PO DAILY HRT (Reported) Fluticasone-Salmeterol (Advair 100-50 Diskus) 100 MCG-50 MCG/DOSE BLST.W.DEV 1 PUF INH BID RESP. (Reported) Glycopyrrolate 2 MG TABLET 1 TAB PO DAILY MUCUS (Reported) Hydralazine HCl 100 MG TABLET 1 TAB PO TID BP (Reported) Hydrochlorothiazide 25 MG TABLET 1 TAB PO DAILY BP (Reported) Levothyroxine Sodium 112 MCG TABLET 1 TAB PO DAILY THYROID (Reported) Metoprolol Succ XL (Toprol Xl) 50 MG TAB 1 TAB PO DAILY HEART/BP (Reported) Montelukast Sodium (Singulair) 10 MG TABLET 1 TAB PO DAILY ALLERGIES/ASTHMA ( Reported) Current Medications: Current Medications Sig/Ava Start time Last Medication Dose Route Stop Time Status Admin Acetaminophen 650 MG Q6P PRN 02/180 PO Acetaminophen 975 MG ONCE ONE 02/18 171 DC 02/18 PO 02/18 171 171 Albuterol Sulfate 2 PUF Q4P PRN 02/18 231 AC INH Alprazolam 0.25 MG DAILY NEEDED PRN 02/18 231 AC PO 02/25 231 Budesonide/ 2 PUF BID 02/19 09 02/19 Formoterol Fumarate INH 0926 Enoxaparin Sodium 40 MG DAILY 02/19 09 02/19 SC 0929 Hydralazine HCl 100 MG TID 02/18 2309 02/19 PO 0929 Hydrocodone Bitart/ 1 TAB Q8P PRN 02/18 2230 02/19 Acetaminophen PO 0619 Levothyroxine Sodium 0.112 MG DAILY AC 02/19 07 AC 02/19 PO 0619 Metoprolol Succinate 50 MG DAILY 02/19 0900 02/19 PO 0926 Morphine Sulfate 0 .STK-MED ONE 02/18 2150 DC .ROUTE Morphine Sulfate 2 MG ONCE ONE 02/18 2130 DC 02/18 IV 02/18 213 214 Omeprazole 40 MG DAILY AC 02/19 07 02/19 PO 0619 Ondansetron HCl 4 MG ONCE ONE 02/19 0930 DC 02/19 IV 02/19 0931 0925 Ondansetron HCl 4 MG ONCE ONE 02/19 0100 DC 02/19 IV 02/19 0101 0058 Oxycodone/ 2 TAB Q8P PRN 02/18 2230 02/19 Acetaminophen PO 0058 Pantoprazole Sodium 40 MG ONCE ONE 02/19 0115 DC 02/19 IV 02/19 0116 0111 Sodium Chloride 1,000 ML ONCE ONE 02/18 2130 FL 02/18 IV 02/19 0409 2149 Review of Systems Review of Systems: Review of systems as per HPI. The remainder of a 10 point review of systems was reviewed and was otherwise negative. Past History Travel History Traveled to See past 21 day No Medical History Cardiovascular: hypertension Respiratory: asthma Gastrointestinal: constipation, diverticulitis, GERD, irritable bowel syndrome Renal: urinary incontinence Endocrine: hypothyroidism Other Medical Hx: rosacea Surgical History Surgical History: non-contributory Family History Relations & Conditions If Any: Relation not specified for: FH: heart disease Psychosocial History Services at Home: None Smoking Status: Never Smoked ETOH Use: denies use Illicit Drug Use: denies illicit drug use Exam & Diagnostic Data Vital Signs and I&O Vital Signs Date Time Temp Pulse Resp B/P B/P Pulse O2 O2 Flow FiO2 Mean Ox Delivery Rate 02/19 0929 67 120/64 02/19 0926 67 120/64 02/19 0911 67 120/64 02/19 0800 Room Air 02/19 0723 97.6 56 20 136/70 93 Room Air 02/19 0020 97.8 62 20 152/64 96 Room Air 02/18 2334 97.9 59 18 174/88 97 02/18 2153 98.0 90 16 166/81 97 Room Air 02/18 2039 69 16 168/98 97 Room Air 02/18 1707 97.6 71 15 166/70 97 Room Air Room Air Intake & Output 02/19 1600 02/19 0800 02/19 0000 02/18 1600 02/18 0800 02/18 0000 Intake Total 120 1000 Output Total 550 Balance -430 1000 Intake, IV 1000 Intake, Oral 120 Output, Urine 550 Patient 180 lb Weight Weight Reported by Patient Measurement Method Physical Exam: General: no apparent distress. Alert. Eyes: No obvious scleral icterus. HEENT: No jugular venous distention or abnormal jugular venous pulsations. Cardiovascular: Normal intensity S1/S2. PMI not grossly displaced. Respiratory: Lungs clear to auscultation bilaterally. Abdomen: Soft, nontender with no guarding or rebound tenderness. Musculoskeletal: No clubbing or cyanosis noted Skin: warm Neurologic: No gross focal deficits noted. Lymph: No gross lymphadenopathy. Labs/Andrea Results: Laboratory Tests 02/19 02/19 02/19 0639 0624 0500 Chemistry Sodium (137 - 145 mmol/L) 124 L Potassium (3.5 - 5.1 mmol/L) 3.5 Chloride (98 - 107 mmol/L) 87 L Carbon Dioxide (22 - 30 mmol/L) 25 Anion Gap (5 - 16) 12 BUN (7 - 17 mg/dL) 10 Creatinine (0.5 - 1.0 mg/dL) 0.7 Estimated GFR (>60 ml/min) > 60 BUN/Creatinine Ratio (7 - 25 %) 14.3 Troponin I (< 0.11 ng/ml) 0.02 Cancelled Cortisol AM Sample (4.46 - 22.7 ug/dL) Cancelled 3.8 L Hematology CBC w Diff NO MAN DIFF REQ WBC (4.8 - 10.8 /CUMM) 6.3 RBC (4.20 - 5.40 /CUMM) 3.87 L Hgb (12.0 - 16.0 G/DL) 12.9 Hct (37 - 47 %) 37.4 MCV (81.0 - 99.0 FL) 96.8 MCH (27.0 - 31.0 PG) 33.3 H MCHC (33.0 - 37.0 G/DL) 34.4 RDW (11.5 - 14.5 %) 12.6 Plt Count (130 - 400 /CUMM) 279 MPV (7.4 - 10.4 FL) 8.1 Gran % (42.2 - 75.2 %) 68.7 Lymphocytes % (20.5 - 51.1 %) 16.3 L Monocytes % (1.7 - 9.3 %) 13.4 H Eosinophils % (0 - 5 %) 1.1 Basophils % (0.0 - 2.0 %) 0.5 Absolute Granulocytes (1.4 - 6.5 /CUMM) 4.4 Absolute Lymphocytes (1.2 - 3.4 /CUMM) 1.0 L Absolute Monocytes (0.10 - 0.60 /CUMM) 0.8 H Absolute Eosinophils (0.0 - 0.7 /CUMM) 0.1 Absolute Basophils (0.0 - 0.2 /CUMM) 0 02/19 02/19 02/18 0430 0430 2330 Chemistry Sodium (137 - 145 mmol/L) 122 L Creatine Kinase (30 - 135 U/L) 113 Troponin I (< 0.11 ng/ml) 0.01 Urines Urine Color (YEL,AMB,STR) YEL Urine Clarity (CLEAR) CLEAR Urine pH (5.0 - 8.0) 7.0 Ur Specific [place] (1.001 - 1.035) 1.010 Urine Protein (NEG,<30 MG/DL) NEG Urine Ketones (NEG) 15 H Urine Nitrite (NEG) NEG Urine Bilirubin (NEG) NEG Urine Urobilinogen (0.1 - 1.0 EU/dl) 0.2 Ur Leukocyte Esterase (NEG) NEG Ur Microscopic EXAM NOT REQUIRED Urine Hemoglobin (NEG) NEG Urine Osmolality (300 - 1000 MOSM/KG) 308 Ur Random Creatinine (mg/dL) 47.7 Ur Random Sodium (30 - 90 mmol/L) 29 L Ur Random Potassium (mmol/L) 25.6 Fraction Sodium Excret (<1% %) 0.3 Urine Glucose (N MG/DL) NEG 02/18 1730 Chemistry Sodium (137 - 145 mmol/L) 121 L Potassium (3.5 - 5.1 mmol/L) 3.8 Chloride (98 - 107 mmol/L) 84 L Carbon Dioxide (22 - 30 mmol/L) 24 Anion Gap (5 - 16) 13 BUN (7 - 17 mg/dL) 12 Creatinine (0.5 - 1.0 mg/dL) 0.6 Estimated GFR (>60 ml/min) > 60 BUN/Creatinine Ratio (7 - 25 %) 20.0 Glucose (65 - 99 mg/dL) 96 Serum Osmolality (285 - 295 MOSM/KG) 254 L Calcium (8.4 - 10.2 mg/dL) 10.6 H Phosphorus (2.5 - 4.5 mg/dL) 4.0 Magnesium (1.6 - 2.3 mg/dL) 1.6 Total Bilirubin (0.2 - 1.3 mg/dL) 1.3 AST (14 - 36 U/L) 24 ALT (9 - 52 U/L) 29 Alkaline Phosphatase (<127 U/L) 53 Troponin I (< 0.11 ng/ml) < 0.01 Total Protein (6.3 - 8.2 g/dL) 7.8 Albumin (3.5 - 5.0 g/dL) 4.8 Globulin (1.9 - 4.2 gm/dL) 3.0 Albumin/Globulin Ratio (1.1 - 2.2 %) 1.6 TSH (0.270 - 4.200 uIU/mL) 0.690 Free T4 (0.78 - 2.44 ng/dL) 2.61 H Hematology CBC w Diff NO MAN DIFF REQ WBC (4.8 - 10.8 /CUMM) 6.2 RBC (4.20 - 5.40 /CUMM) 4.32 Hgb (12.0 - 16.0 G/DL) 14.0 Hct (37 - 47 %) 41.5 MCV (81.0 - 99.0 FL) 96.0 MCH (27.0 - 31.0 PG) 32.5 H MCHC (33.0 - 37.0 G/DL) 33.8 RDW (11.5 - 14.5 %) 12.8 Plt Count (130 - 400 /CUMM) 307 MPV (7.4 - 10.4 FL) 7.3 L Gran % (42.2 - 75.2 %) 71.7 Lymphocytes % (20.5 - 51.1 %) 14.6 L Monocytes % (1.7 - 9.3 %) 12.7 H Eosinophils % (0 - 5 %) 0.7 Basophils % (0.0 - 2.0 %) 0.3 Absolute Granulocytes (1.4 - 6.5 /CUMM) 4.4 Absolute Lymphocytes (1.2 - 3.4 /CUMM) 0.9 L Absolute Monocytes (0.10 - 0.60 /CUMM) 0.8 H Absolute Eosinophils (0.0 - 0.7 /CUMM) 0 Absolute Basophils (0.0 - 0.2 /CUMM) 0 ESR Westergren (0 - 20 MM) 10 Diagnostic Data EKG Results Twelve-lead tracing personally reviewed and shows sinus bradycardia at 58 bpm with normal R-wave progression CXR Results No CHF Other Results Telemetry tracings were personally reviewed and shows sinus rhythm and sinus bradycardia Assessment/Plan Assessment/Plan 1. Atypical chest pain with neck pain and back pain likely musculoskeletal in nature; she has a known history of degenerative disc disease 2. Hypertension with side effects to multiple agents in the past 3. No history of aortic regurgitation 4. Hyponatremia 5. History of hypothyroidism, urinary incontinence, GERD The patient's chest discomfort is atypical for ischemic etiology; no ischemic ECG changes and serial troponins are negative. I had already scheduled the patient for outpatient echocardiogram and nuclear stress test at a recent visit with me. Agree with holding the hydrochlorothiazide given the hyponatremia. I would also recommend holding the metoprolol for now and seeing if her blood pressure is well controlled with just the hydralazine which I recently increased at an outpatient visit. Rolan Davey MD [facility] Consult Acknowledgment - Thank you for your consult request.
--- NOTE | 2018-02-19 12:50 | Cons- Nephrology ---
General Information and HPI Consulting Request Date of Consult: 02/19/18 Requested By: Deyanira Gallo MD Reason for Consult: Hyponatremia Source of Information: patient, old records Exam Limitations: no limitations History of Present Illness: I have been asked to see this 72-year-old woman because of hyponatremia. She was admitted yesterday with multiple complaints of pain involving her head, neck , chest and groin. The chest pain was left anterior/breast area. In the ED she was found to have a serum sodium of 121 resulting in her admission for that issue as well as for the possibility of an acute coronary syndrome. Troponin levels have been normal. Serum sodium has risen slightly to 124. In reviewing old data, her serum sodium was normal in 2014. More recently her sodium was normal in early December but subsequently was noted to be falling. There has been no nausea, vomiting or diarrhea. In reviewing her medication list, she has been on HCTZ for several months. There is a history of intolerance to multiple antihypertensive medications and currently she is only on hydralazine. Of note, renal function is normal with a serum creatinine of 0.7. Urine sodium is 29 with a fractional excretion of sodium of 0.3%. Thyroid function studies are relatively unremarkable; serum a.m. cortisol low at 3.8. Past medical history is positive for hypertension, hypothyroidism, asthma, GERD, diverticulitis, irritable bowel syndrome, constipation, chronic UTIs, rosacea, degenerative disc disease of the lumbar spine, status post cervical fusion, sixth nerve cranial palsy. Medications: See below Allergies: Oliver inhibitors, valsartan and Social history: , lives with her of over 50 years, 2 children and 3 grandchildren, stop smoking cigarettes over 30 years ago, no history of alcohol or drug abuse. Family history: Positive for kidney disease in her father (no details), negative for endocrine disorders. Allergies/Medications Allergies: Coded Allergies: OLIVER Inhibitors (DIZZINESS, NAUSEA 02/18/18) valsartan (DIZZY, NAUSEA 02/18/18) Home Med List: Albuterol Sulfate (Proair Hfa) 90 MCG HFA.AER.AD 2 PUF INH AD PRN ASTHMA ( Reported) Alprazolam 0.25 MG TABLET 1 TAB PO AD PRN ANXIETY (Reported) Aspirin (Ecotrin*) 81 MG TABLET.DR 1 TAB PO DAILY HEART/BLOOD (Reported) Azelastine/Fluticasone (Dymista Nasal [place]) (Unknown Strength) SPRAY.PUMP ( Unknown Dose) NASB AD UNKNOWN (Reported) Cholecalciferol (Vitamin D3) (Vitamin D) 2,000 UNIT TABLET 1 TAB PO DAILY SUPPLEMENT (Reported) Cyanocobalamin (Vitamin B-12) 1,000 MCG TABLET 1 TAB PO DAILY SUPPLEMENT ( Reported) Esomeprazole (Nexium) 40 MG CAPSULE.DR 1 CAP PO DAILY GI (Reported) Estrogens, Conjugated (Premarin) 0.3 MG TABLET 1 TAB PO DAILY HRT (Reported) Fluticasone-Salmeterol (Advair 100-50 Diskus) 100 MCG-50 MCG/DOSE BLST.W.DEV 1 PUF INH BID RESP. (Reported) Glycopyrrolate 2 MG TABLET 1 TAB PO DAILY MUCUS (Reported) Hydralazine HCl 100 MG TABLET 1 TAB PO TID BP (Reported) Hydrochlorothiazide 25 MG TABLET 1 TAB PO DAILY BP (Reported) Levothyroxine Sodium 112 MCG TABLET 1 TAB PO DAILY THYROID (Reported) Metoprolol Succ XL (Toprol Xl) 50 MG TAB 1 TAB PO DAILY HEART/BP (Reported) Montelukast Sodium (Singulair) 10 MG TABLET 1 TAB PO DAILY ALLERGIES/ASTHMA ( Reported) Review of Systems Review of Systems: Gen.: Appetite good, no weight loss or weight gain Skin: No rash or jaundice HEENT: No visual or hearing disturbances, no discharge Cardiopulmonary: No sob, cough, orthopnea; chest pain as noted see HPI GI: No nausea, vomiting, abdominal pain, diarrhea : No dysuria, hematuria or other symptoms referable to the urinary tract Musculoskeletal: See HPI Neuro: No altered mental status, paresthesias Past History Travel History Traveled to [place] past 21 day No Medical History Cardiovascular: hypertension Respiratory: asthma Gastrointestinal: constipation, diverticulitis, GERD, irritable bowel syndrome Renal: urinary incontinence Endocrine: hypothyroidism Other Medical Hx: rosacea Surgical History Surgical History: non-contributory Family History Relations & Conditions If Any: Relation not specified for: FH: heart disease Psychosocial History Services at Home: None Smoking Status: Never Smoked ETOH Use: denies use Illicit Drug Use: denies illicit drug use Exam & Diagnostic Data Vital Signs and I&O Vital Signs Date Time Temp Pulse Resp B/P B/P Pulse O2 O2 Flow FiO2 Mean Ox Delivery Rate 02/19 0929 67 120/64 02/19 0926 67 120/64 02/19 0911 67 120/64 02/19 0800 Room Air 02/19 0723 97.6 56 20 136/70 93 Room Air 02/19 0020 97.8 62 20 152/64 96 Room Air 02/18 2334 97.9 59 18 174/88 97 02/18 2153 98.0 90 16 166/81 97 Room Air 02/18 2039 69 16 168/98 97 Room Air 02/18 1707 97.6 71 15 166/70 97 Room Air Room Air Intake & Output 02/19 1600 02/19 0400 02/18 1600 02/18 0400 02/17 1600 02/17 0400 Intake Total 120 1000 Output Total 550 Balance -430 1000 Intake, IV 1000 Intake, Oral 120 Output, Urine 550 Patient 180 lb Weight Weight Reported by Patient Measurement Method Physical Exam: General: Well-developed, obese white female in NAD Skin: No rash or jaundice HEENT: Conjunctivae pink, sclerae anicteric, mucous membranes moist Neck: Without masses or thyromegaly, no supraclavicular or cervical adenopathy Chest: Clear to P&A Heart: Regular rate and rhythm without S3 or rub Abdomen: Obeses, soft and nontender without palpable masses or organomegaly Extremities: Without cyanosis or edema Neuro: Awake and alert, no focal findings, no asterixis or myoclonus Assessment/Plan Assessment/Recommendations Assessment: 72-year-old woman with hyponatremia and normal renal function with no evidence for overt CHF or chronic liver disease. The most likely etiology is the thiazide medication that she was taking as an outpatient for her hypertension. I do have to note however that her a.m. serum cortisol was low and this will need to be followed up. She does not appear to be symptomatic with regard to the hyponatremia. Recommendations: 1. Consider Cortrosyn stimulation test 2. Limit by mouth fluids to 1000 mL per day (800 mL per day if sodium fails to increase) 3. Agree with discontinuing HCTZ; would avoid all thiazide diuretics in the future 4. Monitor chemistries daily 5. Further cardiac evaluation/management per Cardiology Thank you. Will follow.
[2018-02-19 13:49] VITALS: BP 110/66
[2018-02-20] VITALS: BP 148/72
[2018-02-20 06:30] VITALS: BP 132/80
[2018-02-20 08:25] LABS: ABSOLUTE BASOPHIL COUNT 0 /CUMM (0.0-0.2); ABSOLUTE EOSINOPHIL COUNT 0.1 /CUMM (0.0-0.7); ABSOLUTE GRANULOCYTE CT 3.5 /CUMM (1.4-6.5); ABSOLUTE LYMPH COUNT 1.4 /CUMM (1.2-3.4); ABSOLUTE MONOCYTE COUNT 0.9 /CUMM (0.10-0.60); BASOPHIL % 0.4 % (0.0-2.0); EOSINOPHIL % 1.7 % (0-5); GRANULOCYTE % 58.7 % (42.2-75.2); HEMATOCRIT 38.5 % (37-47); MEAN CORPUSCULAR HGB 33.2 PG (27.0-31.0); MEAN CORPUSCULAR HGB CONC 34.2 G/DL (33.0-37.0); MEAN CORPUSCULAR VOLUME 97.3 FL (81.0-99.0); MEAN PLATELET VOLUME 8.2 FL (7.4-10.4); PLATELET COUNT 294 /CUMM (130-400); RBC DISTRIBUTION WIDTH 12.9 % (11.5-14.5); RED BLOOD CELL CT 3.96 /CUMM (4.20-5.40); WHITE BLOOD CELL COUNT 5.9 /CUMM (4.8-10.8)
--- NOTE | 2018-02-20 08:49 | PN- Housestaff ---
Rupali PORTILLO,Kaya 02/20/18 0848: Subjective Follow-up For: chest pain hyponatremia Tele-Events Since Last Visit: nsr and first degree heart block, pr .24 rate 59-62. Subjective: patient has pain in her bilateral groin today. she will be sent for ct runoff for vascular disease. she denies any chest pain or shortness of breath. she denies headache, is not confused. Review of Systems Constitutional: Reports: no symptoms. Cardiovascular: Reports: no symptoms. Respiratory: Reports: no symptoms. Gastrointestinal: Reports: no symptoms. Genitourinary: Reports: no symptoms. Musculoskeletal: Reports: joint pain, muscle pain. Objective Last 24 Hrs of Vital Signs/I&O Vital Signs Date Time Temp Pulse Resp B/P B/P Pulse O2 O2 Flow FiO2 Mean Ox Delivery Rate 02/21 2216 99.1 74 18 108/64 93 02/20 2010 67 140/68 02/20 1458 65 98/46 02/20 1416 97.0 65 20 98/46 95 02/20 1350 65 108/52 02/20 0810 75 168/72 02/20 0630 97.8 57 18 132/80 95 Intake & Output 02/21 0800 02/21 0000 02/20 1600 Intake Total 440 340 Output Total 500 Balance 440 -160 Intake, Oral 440 340 Number 1 Bowel Movements Output, Urine 500 Patient 186 lb Weight Physical Exam General Appearance: Alert, Cooperative, No Acute Distress Skin: No Rashes, No Breakdown, No Significant Lesion Sepsis Skin Exam (color): Normal for Ethnicity Cardiovascular: Regular Rate, Normal S1, Normal S2, No Murmurs Lungs: Clear to Auscultation, Normal Air Movement Abdomen: Normal Bowel Sounds, Soft, No Tenderness Neurological: Normal Speech Current Medications: Current Medications Sig/Ava Start time Last Medication Dose Route Stop Time Status Admin Acetaminophen 650 MG Q6P PRN 02/18 2230 AC PO Albuterol Sulfate 2 PUF Q4P PRN 02/18 2315 AC INH Alprazolam 0.25 MG DAILY NEEDED PRN 02/18 2315 AC 02/20 PO 02/25 2314 0806 Bisacodyl 5 MG DAILY 02/19 1439 AC 02/20 PO 0807 Budesonide/ 2 PUF BID 02/19 0900 AC 02/20 Formoterol Fumarate INH 2009 Enoxaparin Sodium 40 MG DAILY 02/19 0900 AC 02/20 SC 0807 Hydralazine HCl 100 MG TID 02/18 2309 AC 02/20 PO 2010 Hydrocodone Bitart/ 1 TAB Q8P PRN 02/18 2230 AC 02/20 Acetaminophen PO 2005 Levothyroxine Sodium 0.112 MG DAILY AC 02/19 0700 AC 02/20 PO 0711 Omeprazole 40 MG DAILY AC 02/19 0700 AC 02/20 PO 0711 Oxycodone/ 2 TAB Q8P PRN 02/18 2230 AC 02/21 Acetaminophen PO 0039 Senna 187 MG AT BEDTIME 02/19 2100 AC 02/20 PO 2005 Sodium Chloride 500 ML BOLUS ONE 02/20 0600 DC 02/20 IV 02/20 0659 0708 Last 24 Hrs of Lab/Andrea Results Last 24 Hrs of Labs/Mics: Laboratory Tests 02/21/18 0110: Sodium Pending, Potassium Pending, Chloride Pending, Carbon Dioxide Pending, Anion Gap Pending, BUN Pending, Creatinine Pending, BUN/Creatinine Ratio Pending 02/20/18 1855: Anion Gap 11, Estimated GFR > 60, BUN/Creatinine Ratio 15.0 02/20/18 0638: Anion Gap 13, Estimated GFR > 60, BUN/Creatinine Ratio 14.3, CBC w Diff NO MAN DIFF REQ, RBC 3.96 L, MCV 97.3, MCH 33.2 H, MCHC 34.2, RDW 12.9, MPV 8.2, Gran % 58.7, Lymphocytes % 23.9, Monocytes % 15.3 H, Eosinophils % 1.7, Basophils % 0.4, Absolute Granulocytes 3.5, Absolute Lymphocytes 1.4, Absolute Monocytes 0.9 H, Absolute Eosinophils 0.1, Absolute Basophils 0 Assessment/Plan Assessment: Patient is a 72-year-old female with past medical history of hypertension, hypothyroidism, asthma, GERD, diverticulitis, IBS, constipation, chronic UTI, rosacea, degenerative disc disease of the lumbar region, status post cervical fusion presenting this admission with multiple complaints of head, neck, groin, chest pain and weakness. Patient is being evalutaed and treated in telemetry for: 1. Chest pain, rule out ACS 2. Euvolemic Hyponatremia most likely due to poor oral intake 3. Chronic conditions 4. bilateral groin pain Plan: Continue telemetry monitoring Serial EKG and troponins ruled out ACS Cardiology recommendation appreciated Gentle IV hydration with normal saline at 75 mL per hour Continue monitoring sodium every 12 hours, sodium is slowly improving Urine showed urinary sodium 29, urine osmolarity 308, FeNa 0.3 Continue to hold hydrochlorothiazide as this likely caused her shant Fluid restriction to 1000 cc per day and if no improvement can increase it to 800 cc per day - has improved leonard 123-127 today. A.m. cortisol, was 3.8, do cosyntropin stimulation test in AM CT with runoff study for possible femoral artery stenosis secondary to abdominal aortic calcification - negative both sides Nephrology recommendation appreciated BP low today 98/46 and bp meds held, watch bp Continue home medications except for hydrochlorothiazide DVT prophylaxis: Lovenox Diet: Heart healthy Code: Full code Problem List: 1. Hyponatremia 2. Chest pain Pain Ratin Pain Location: groin bilaterally Pain Goal: Pain 4 or less Pain Plan: pathway Tomorrow's Labs & Rationales: cbc bep Dawit Segura MD 02/20/18 1313: Attending MD Review Statement Attending Statement Attending MD Statement: examined this patient, discuss w/resident/PA/STORE WORKER, reviewed EMR data (avail) Attending Assessment/Plan: 72F PMH HTN, asthma, hypothyroidism, GERD, diverticulitis, IBS-c, degenerative disease of lumbar spine, cervical spine surgery, admitted with complaints of occipital headache, left groin pain, and mid-sternal chest pain. Chest pain was non-exertional and not associated with SOB, diaphoresis, lightheadedness, or palpitations, and serial EKG and troponins were negative. She was incidentally found to have a sodium level of 121. Patient feels better this morning. She denies dysuria or hematuria. Sodium increased to 127 this morning, cortisol level 3.8. CT abdomen/pelvis without contrast is negative aside from atherosclerosis of the abdominal aorta. Assessment 1. Hyponatremia 2. Hypocortisolemia 3. Left inguinal pain 4. Occipital headache 5. Chest pain at rest - resolved Plan - Continue on telemetry - Will obtain ACTH stimulation test - Follow nephrology and cardiology recommendations - Trending sodium q6h for 24 hours, then q12h - Obtain aortic angiogram with runoff to evaluate inguinal pain in this patient with severe aortic atherosclerosis - Continue home medications - DVT PPx
--- NOTE | 2018-02-20 13:21 | CT SCAN REPORT ---
STUDY PERFORMED: CT ANGIOGRAM ABDOMEN, PELVIS AND LOWER EXTREMITY RUNOFF WITH CONTRAST INTERPRETING VASCULAR \T\ INTERVENTIONAL RADIOLOGIST: Anthony Fagan MD HISTORY: Abdominal aortic aneurysm, calcification with possible femoral artery stenosis. Thigh pain. DESCRIPTION: Routine abdominal aorta and lower extremity runoff CTA protocol with contrast was performed. 120 mL of Optiray 350 was administered. The images were reviewed and postprocessed on a dedicated 3-D workstation. Extensive vascular postprocessing was performed including 3-D volume rendered, maximum intensity projection, and curved multiplanar reformatted images COMPARISON: CT abdomen and pelvis 02/18/2018. FINDINGS: VASCULAR: 1. 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 There is excellent opacification of the distal branches of the celiac axis. The SMA is widely patent. There is atherosclerotic calcification at the origin of the ZAHIDA with some attenuation of the distal artery suggesting this may be filled via retrograde collaterals. 2. Renal Arteries: Due to the motion artifact, the distal aspects of the renal arteries could not be interrogated. There is a single right-sided renal artery which is well opacified. There are 2 left-sided renal arteries. There is at least moderate stenosis at the origin of the dominant superior left renal artery. A smaller accessory inferior left renal artery appears to be patent. 3. Infrarenal Abdominal Aorta: [id number] calcified and noncalcified atherosclerotic disease throughout the infrarenal abdominal aorta without aneurysmal dilatation or dissection. 4. Right Lower Extremity Arterial Perfusion: The right common femoral artery is heavily diseased posteriorly; however, it remains widely patent. The internal iliac artery is diseased but patent. No significant stenosis in the external iliac artery, common femoral artery, profunda femoral artery. Scattered atherosclerotic disease in the superficial femoral artery without evidence of a hemodynamically significant stenosis. The popliteal artery is patent. Below the knee, the peroneal artery is diseased with attenuated flow beyond the mid/distal calf although there is reconstitution at the ankle. The anterior tibial artery shows attenuated flow at the mid/distal calf. The posterior tibial artery is diseased with several short segment [id number] stenoses but it remains patent to the foot. 5. Left Lower Extremity Arterial Perfusion: The left common femoral artery is heavily diseased posteriorly; however, it remains widely patent. The internal iliac artery is diseased but patent. No significant stenosis in the external iliac artery, common femoral artery, profunda femoral artery. Scattered atherosclerotic disease in the superficial femoral artery without evidence of a hemodynamically significant stenosis. The popliteal artery is patent. Below the knee, the peroneal artery and anterior tibial arteries are patent to the foot. The left posterior tibial artery is diseased with significant attenuation of flow distally; however, there is good reconstitution of flow to the foot distally. NONVASCULAR: Lung Bases: The visualized lung bases are unremarkable. Small hiatal hernia. Liver, Gallbladder, and Biliary Tree: Diffusely decreased attenuation in the liver most consistent with hepatic steatosis. No focal hepatic lesions. No intrahepatic biliary ductal dilatation. The gallbladder is unremarkable with no evidence of radiopaque gallstones, gallbladder wall thickening, or obvious pericholecystic inflammatory changes. Pancreas: Unremarkable. Spleen: Unremarkable. Adrenal Glands: Unremarkable. Kidneys and Ureters: The kidneys are normal in size, shape, and attenuation. No hydronephrosis, hydroureter, or calculi seen. No perinephric stranding. Bladder: Unremarkable. Gastrointestinal Tract: The small and large bowel are unremarkable. The appendix is not well visualized, no secondary signs of an acute appendicitis. Abdominal Wall: No significant hernia is appreciated. Lymph Nodes: No abdominal or pelvic lymphadenopathy. Pelvic Viscera: No pelvic mass or free fluid. Osseous Structures: No destructive bony lesions. Degenerative changes in the spine. IMPRESSION: 1. No evidence of abdominal aortic aneurysm. Moderate atherosclerotic disease as described above. 2. Right lower extremity: No significant inflow disease. One-vessel runoff to the foot via the posterior tibial artery. 3. Left lower extremity: No significant inflow disease. Two-vessel runoff to the foot. 4. Hepatic steatosis.
[2018-02-20 13:50] VITALS: BP 108/52
[2018-02-20 14:16] VITALS: BP 98/46
--- NOTE | 2018-02-20 14:45 | PN- Cardiology ---
Subjective Subjective: The patient seems to be doing okay. She denies any significant cardiac symptoms at the moment. Objective Vital Signs and I&Os Vital Signs Date Time Temp Pulse Resp B/P B/P Pulse O2 O2 Flow FiO2 Mean Ox Delivery Rate 02/20 1416 97.0 65 20 98/46 95 02/20 1350 65 108/52 02/20 0810 75 168/72 02/20 0630 97.8 57 18 132/80 95 02/20 0000 99.0 64 18 148/72 93 02/19 2029 67 132/62 02/19 1600 Room Air Intake & Output 02/20 1600 02/20 0800 02/20 0000 02/19 1600 02/19 0800 02/19 0000 Intake Total 340 100 350 844 376 4738 Output Total 500 425 500 100 550 Balance -160 -325 -150 566 -430 1000 Intake, IV 24 1000 Intake, Oral 340 100 350 642 120 Number 1 Bowel Movements Output, Urine 500 425 500 100 550 Patient 182 lb 180 lb Weight Weight Bed scale Reported by Patient Measurement Method Physical Exam: General Appearance: well developed, overweight, alert, awake, oriented Head: normal HEENT: Normal Neck: supple, JVP normal, carotid upstrokes normal bilaterally, no masses or thyromegaly Respiratory: chest non-tender, clear to auscultation and percussion bilaterally Cardiovascular: regular rate/rhythm, normal S1, S2, 1/6 systolic murmur Abdomen: normal bowel sounds, soft, non-tender Extremities: normal inspection, no edema Vascular: Pulses are 2+ and equal bilaterally Neurologic: Grossly normal/nonfocal Current Medications: Current Medications Sig/Ava Start time Last Medication Dose Route Stop Time Status Admin Acetaminophen 650 MG Q6P PRN 02/18 2230 AC PO Albuterol Sulfate 2 PUF Q4P PRN 02/18 2315 AC INH Alprazolam 0.25 MG DAILY NEEDED PRN 02/18 2315 AC 02/20 PO 02/25 2314 0806 Bisacodyl 5 MG DAILY 02/19 1439 AC 02/20 PO 0807 Budesonide/ 2 PUF BID 02/19 0900 AC 02/20 Formoterol Fumarate INH 0806 Enoxaparin Sodium 40 MG DAILY 02/19 0900 AC 02/20 SC 0807 Hydralazine HCl 100 MG TID 02/18 2309 AC 02/20 PO 0810 Hydrocodone Bitart/ 1 TAB Q8P PRN 02/18 2230 AC 02/20 Acetaminophen PO 1121 Levothyroxine Sodium 0.112 MG DAILY AC 02/19 07 AC 02/20 PO 0711 Omeprazole 40 MG DAILY AC 02/19 0700 AC 02/20 PO 0711 Ondansetron HCl 4 MG ONCE ONE 02/19 2030 DC 02/19 IV 02/19 Oxycodone/ 2 TAB Q8P PRN 02/18 2230 AC 02/20 Acetaminophen PO 0806 Senna 187 MG AT BEDTIME 02/19 2100 AC 02/19 PO 2025 Sodium Chloride 500 ML BOLUS ONE 02/20 06 DC 02/20 IV 02/20 0659 0708 Results Last 48 Hrs of Labs/Mics: Laboratory Tests 02/20/18 0638: Anion Gap 13, Estimated GFR > 60, BUN/Creatinine Ratio 14.3, CBC w Diff NO MAN DIFF REQ, RBC 3.96 L, MCV 97.3, MCH 33.2 H, MCHC 34.2, RDW 12.9, MPV 8.2, Gran % 58.7, Lymphocytes % 23.9, Monocytes % 15.3 H, Eosinophils % 1.7, Basophils % 0.4, Absolute Granulocytes 3.5, Absolute Lymphocytes 1.4, Absolute Monocytes 0.9 H, Absolute Eosinophils 0.1, Absolute Basophils 0 02/19/18 205: Anion Gap 12, Estimated GFR > 60, BUN/Creatinine Ratio 15.0 02/19/18 0639: Cortisol AM Sample Cancelled 02/19/18 0624: Anion Gap 12, Estimated GFR > 60, BUN/Creatinine Ratio 14.3, Troponin I 0.02, Cortisol AM Sample 3.8 L, CBC w Diff NO MAN DIFF REQ, RBC 3.87 L, MCV 96.8, MCH 33.3 H, MCHC 34.4, RDW 12.6, MPV 8.1, Gran % 68.7, Lymphocytes % 16.3 L, Monocytes % 13.4 H, Eosinophils % 1.1, Basophils % 0.5, Absolute Granulocytes 4.4, Absolute Lymphocytes 1.0 L, Absolute Monocytes 0.8 H, Absolute Eosinophils 0.1, Absolute Basophils 0 02/19/18 0500: Troponin I Cancelled 02/19/18 0430: Urine Color YEL, Urine Clarity CLEAR, Urine pH 7.0, Ur Specific Swoope 1.010, Urine Protein NEG, Urine Ketones 15 H, Urine Nitrite NEG, Urine Bilirubin NEG, Urine Urobilinogen 0.2, Ur Leukocyte Esterase NEG, Ur Microscopic EXAM NOT REQUIRED, Urine Hemoglobin NEG, Urine Glucose NEG 02/19/18 0430: Urine Osmolality 308, Ur Random Creatinine 47.7, Ur Random Sodium 29 L, Ur Random Potassium 25.6, Fraction Sodium Excret 0.3 02/18/18 2330: Creatine Kinase 113, Troponin I 0.01 02/18/18 1730: Anion Gap 13, Estimated GFR > 60, BUN/Creatinine Ratio 20.0, Glucose 96, Serum Osmolality 254 L, Calcium 10.6 H, Phosphorus 4.0, Magnesium 1.6, Total Bilirubin 1.3, AST 24, ALT 29, Alkaline Phosphatase 53, Troponin I < 0.01, Total Protein 7.8, Albumin 4.8, Globulin 3.0, Albumin/Globulin Ratio 1.6, TSH 0.690, Free T4 2.61 H, CBC w Diff NO MAN DIFF REQ, RBC 4.32, MCV 96.0, MCH 32.5 H, MCHC 33.8, RDW 12.8, MPV 7.3 L, Gran % 71.7, Lymphocytes % 14.6 L, Monocytes % 12.7 H, Eosinophils % 0.7, Basophils % 0.3, Absolute Granulocytes 4.4, Absolute Lymphocytes 0.9 L, Absolute Monocytes 0.8 H, Absolute Eosinophils 0, Absolute Basophils 0, ESR Westergren 10 Assessment/Plan Assessment/Plan Assessment: 1. Atypical chest pain with neck pain and back pain likely musculoskeletal in nature; she has a known history of degenerative disc disease 2. Hypertension with side effects to multiple agents in the past 3. No history of aortic regurgitation 4. Hyponatremia 5. History of hypothyroidism, urinary incontinence, GERD Recommendations: -Continue current management as per the medical team. -CT angiogram results pending -Sodium level slightly improved at 127 Continue telemetry? Yes at an outpatient visit.
[2018-02-20 22:16] VITALS: BP 108/64
[2018-02-21 07:00] VITALS: BP 122/74
--- NOTE | 2018-02-21 08:41 | PN- Housestaff ---
Jessica PORTILLO,Jef 02/21/18 0841: Subjective Follow-up For: chest pain inguinal pain Tele-Events Since Last Visit: sinus rhythm HR 60s-70s Review of Systems Constitutional: Reports: see HPI. Objective Last 24 Hrs of Vital Signs/I&O Vital Signs Date Time Temp Pulse Resp B/P B/P Pulse O2 O2 Flow FiO2 Mean Ox Delivery Rate 02/21 1358 98.9 61 20 120/62 97 Room Air 02/21 1212 72 122/60 02/21 0907 75 100/54 02/21 0700 97.5 66 18 122/74 96 02/20 2216 99.1 74 18 108/64 93 02/20 2010 67 140/68 Intake & Output 02/21 1600 02/21 0800 02/21 0000 Intake Total 400 100 440 Output Total Balance 400 100 440 Intake, Oral 400 100 440 Patient 84.538 kg Weight Physical Exam General Appearance: Alert, Oriented X3, Cooperative, No Acute Distress Cardiovascular: Regular Rate, Normal S1, Normal S2, No Murmurs Lungs: Clear to Auscultation, Normal Air Movement Abdomen: Normal Bowel Sounds, Soft, No Tenderness, No Masses Extremities: No Clubbing, No Cyanosis, No Edema, Normal Pulses Current Medications: Current Medications Sig/Ava Start time Last Medication Dose Route Stop Time Status Admin Acetaminophen 650 MG Q6P PRN 02/18 2230 AC PO Albuterol Sulfate 2 PUF Q4P PRN 02/18 231 AC INH Alprazolam 0.25 MG DAILY NEEDED PRN 02/18 2315 AC 02/20 PO 02/25 2314 0806 Bisacodyl 5 MG DAILY 02/19 1439 AC 02/21 PO 0908 Budesonide/ 2 PUF BID 02/19 09 AC 02/21 Formoterol Fumarate INH 0909 Cosyntropin 0.25 MG ONE ONE 02/22 07 AC IV 02/22 0701 Enoxaparin Sodium 40 MG DAILY 02/19 09 AC 02/21 SC 0909 Hydralazine HCl 100 MG TID 02/18 2309 DC 02/21 PO 0907 Hydrocodone Bitart/ 1 TAB Q8P PRN 02/18 2230 AC 02/21 Acetaminophen PO 0452 Levothyroxine Sodium 0.112 MG DAILY AC 02/19 0700 AC 02/21 PO 0452 Metoprolol Tartrate 25 MG BID 02/21 0915 AC 02/21 PO 1212 Omeprazole 40 MG DAILY AC 02/19 0700 AC 02/21 PO 0453 Oxycodone/ 2 TAB Q8P PRN 02/18 2230 AC 02/21 Acetaminophen PO 1217 Potassium Chloride 40 MEQ ONCE ONE 02/21 0745 DC 02/21 PO 02/21 0746 0908 Senna 187 MG AT BEDTIME 02/19 2100 AC 02/20 PO 2004 Last 24 Hrs of Lab/Andrea Results Last 24 Hrs of Labs/Mics: Laboratory Tests 02/21/18 0830: RBC 3.92 L, MCV 97.5, MCH 33.3 H, MCHC 34.2, RDW 13.1, MPV 8.1, Gran % 70.1, Lymphocytes % 14.6 L, Monocytes % 13.0 H, Eosinophils % 1.6, Basophils % 0.7, Absolute Granulocytes 4.1, Absolute Lymphocytes 0.9 L, Absolute Monocytes 0.8 H, Absolute Eosinophils 0.1, Absolute Basophils 0 02/21/18 0637: Anion Gap 11, Estimated GFR > 60, BUN/Creatinine Ratio 16.7 02/21/18 0110: Anion Gap 11, Estimated GFR > 60, BUN/Creatinine Ratio 18.6 Assessment/Plan Assessment: 72 year old female with PMH of HTN, hypothyroidism, GERD, asthma, spinal degenerative disease and cervical fusion presented with multiple pain complaints including the chest and groin Chest pain: serial troponins negative for myocardial ischemia Continue aspirin, statin, beta issa Cardiology consulted Groin pain: CTA aorta shows some mesenteric stenosis and peripheral vascular disease in the lower extremities, bilateral femoral artery disease but largely patent Hyponatremia: Improved on fluid restriction continue to trend sodium Hold HCTZ Hypothyroidism: Continue synthroid Random cortisol level low Cosyntropin test in AM heart healthy diet dvt [id number] Full code Problem List: 1. Chest pain 2. HTN (hypertension) 3. Hyponatremia Pain Ratin Pain Location: b/l inguinal Pain Goal: Pain 4 or less Pain Plan: prn Tomorrow's Labs & Rationales: Dawit Marcos MD 02/21/18 1658: Attending MD Review Statement Attending Statement Attending MD Statement: examined this patient, discuss w/resident/PA/HOURLY MANAGER, agreed w/resident/PA/HOURLY MANAGER, reviewed EMR data (avail), discussed with nursing Attending Assessment/Plan: Ms. Esteban is a 72F PMH HTN, asthma, hypothyroidism, GERD, diverticulitis, IBS- c, degenerative disease of lumbar spine, cervical spine surgery, admitted with complaints of occipital headache, left groin pain, and mid-sternal chest pain. Chest pain was non-exertional and not associated with SOB, diaphoresis, lightheadedness, or palpitations, and serial EKG and troponins were negative. She was incidentally found to have a sodium level of 121. Patient is still having right sided groin pain with some raditation to the back. She denies dysuria or hematuria. Sodium increased to 132 this morning, cortisol level 3.8. CT abdomen/ pelvis without contrast is negative aside from atherosclerosis of the abdominal aorta. Assessment 1. Hyponatremia - resolving 2. Hypocortisolemia 3. Left inguinal pain 4. Occipital headache 5. Chest pain at rest - resolved Plan - Continue on telemetry with fluid restriction - Will obtain ACTH stimulation test in AM - Follow nephrology and cardiology recommendations - Aortic angiogram with runoff to evaluate inguinal pain in this patient with severe aortic atherosclerosis shows no evidence of blood vessel - Continue home medications - DVT PPx
[2018-02-21 09:21] LABS: ABSOLUTE BASOPHIL COUNT 0 /CUMM (0.0-0.2); ABSOLUTE EOSINOPHIL COUNT 0.1 /CUMM (0.0-0.7); ABSOLUTE GRANULOCYTE CT 4.1 /CUMM (1.4-6.5); ABSOLUTE LYMPH COUNT 0.9 /CUMM (1.2-3.4); ABSOLUTE MONOCYTE COUNT 0.8 /CUMM (0.10-0.60); BASOPHIL % 0.7 % (0.0-2.0); EOSINOPHIL % 1.6 % (0-5); GRANULOCYTE % 70.1 % (42.2-75.2); HEMATOCRIT 38.2 % (37-47); MEAN CORPUSCULAR HGB 33.3 PG (27.0-31.0); MEAN CORPUSCULAR HGB CONC 34.2 G/DL (33.0-37.0); MEAN CORPUSCULAR VOLUME 97.5 FL (81.0-99.0); MEAN PLATELET VOLUME 8.1 FL (7.4-10.4); PLATELET COUNT 286 /CUMM (130-400); RBC DISTRIBUTION WIDTH 13.1 % (11.5-14.5); RED BLOOD CELL CT 3.92 /CUMM (4.20-5.40); WHITE BLOOD CELL COUNT 5.9 /CUMM (4.8-10.8)
[2018-02-21 13:58] VITALS: BP 120/62
--- NOTE | 2018-02-21 15:45 | PN- Cardiology ---
Subjective Subjective: Clinically stable. The patient continues to complain of lower abdominal and groin discomfort. CTA results noted. No cardiac symptoms noted Objective Vital Signs and I&Os Vital Signs Date Time Temp Pulse Resp B/P B/P Pulse O2 O2 Flow FiO2 Mean Ox Delivery Rate 02/21 1358 98.9 61 20 120/62 97 Room Air 02/21 1212 72 122/60 02/21 0907 75 100/54 02/21 0700 97.5 66 18 122/74 96 02/20 2216 99.1 74 18 108/64 93 02/20 2010 67 140/68 Intake & Output 02/21 1600 02/21 0800 02/21 0000 02/20 1600 02/20 0800 02/20 0000 Intake Total 400 100 440 340 100 350 Output Total 500 425 500 Balance 400 100 440 -160 -325 -150 Intake, Oral 400 100 440 340 100 350 Number 1 Bowel Movements Output, Urine 500 425 500 Patient 186 lb 182 lb Weight Weight Bed scale Measurement Method Physical Exam: General Appearance: well developed, overweight, alert, awake, oriented Head: normal HEENT: Normal Neck: supple, JVP normal, carotid upstrokes normal bilaterally, no masses or thyromegaly Respiratory: chest non-tender, clear to auscultation and percussion bilaterally Cardiovascular: regular rate/rhythm, normal S1, S2, 1/6 systolic murmur Abdomen: normal bowel sounds, soft, non-tender Extremities: normal inspection, no edema Vascular: Pulses are 2+ and equal bilaterally Neurologic: Grossly normal/nonfocal Current Medications: Current Medications Sig/Ava Start time Last Medication Dose Route Stop Time Status Admin Acetaminophen 650 MG Q6P PRN 02/18 2230 AC PO Albuterol Sulfate 2 PUF Q4P PRN 02/18 2315 AC INH Alprazolam 0.25 MG DAILY NEEDED PRN 02/18 2315 AC 02/20 PO 02/25 2314 0806 Bisacodyl 5 MG DAILY 02/19 1439 AC 02/21 PO 0908 Budesonide/ 2 PUF BID 02/19 09 AC 02/21 Formoterol Fumarate INH 0909 Cosyntropin 0.25 MG ONE ONE 02/22 0700 AC IV 02/22 0701 Enoxaparin Sodium 40 MG DAILY 02/19 09 AC 02/21 SC 0909 Hydralazine HCl 100 MG TID 02/18 2309 DC 02/21 PO 0907 Hydrocodone Bitart/ 1 TAB Q8P PRN 02/18 2230 AC 02/21 Acetaminophen PO 0452 Levothyroxine Sodium 0.112 MG DAILY AC 02/19 0700 AC 02/21 PO 0452 Metoprolol Tartrate 25 MG BID 02/21 0915 AC 02/21 PO 1212 Omeprazole 40 MG DAILY AC 02/19 0700 AC 02/21 PO 0453 Oxycodone/ 2 TAB Q8P PRN 02/18 2230 AC 02/21 Acetaminophen PO 1217 Potassium Chloride 40 MEQ ONCE ONE 02/21 0745 DC 02/21 PO 02/21 0746 0908 Senna 187 MG AT BEDTIME 02/19 2100 AC 02/20 PO 2004 Results Last 48 Hrs of Labs/Mics: Laboratory Tests 02/21/18 0830: RBC 3.92 L, MCV 97.5, MCH 33.3 H, MCHC 34.2, RDW 13.1, MPV 8.1, Gran % 70.1, Lymphocytes % 14.6 L, Monocytes % 13.0 H, Eosinophils % 1.6, Basophils % 0.7, Absolute Granulocytes 4.1, Absolute Lymphocytes 0.9 L, Absolute Monocytes 0.8 H, Absolute Eosinophils 0.1, Absolute Basophils 0 02/21/18 0637: Anion Gap 11, Estimated GFR > 60, BUN/Creatinine Ratio 16.7 02/21/18 0110: Anion Gap 11, Estimated GFR > 60, BUN/Creatinine Ratio 18.6 02/20/18 1855: Anion Gap 11, Estimated GFR > 60, BUN/Creatinine Ratio 15.0 02/20/18 0638: Anion Gap 13, Estimated GFR > 60, BUN/Creatinine Ratio 14.3, CBC w Diff NO MAN DIFF REQ, RBC 3.96 L, MCV 97.3, MCH 33.2 H, MCHC 34.2, RDW 12.9, MPV 8.2, Gran % 58.7, Lymphocytes % 23.9, Monocytes % 15.3 H, Eosinophils % 1.7, Basophils % 0.4, Absolute Granulocytes 3.5, Absolute Lymphocytes 1.4, Absolute Monocytes 0.9 H, Absolute Eosinophils 0.1, Absolute Basophils 0 02/19/180: Anion Gap 12, Estimated GFR > 60, BUN/Creatinine Ratio 15.0 Assessment/Plan Assessment/Plan Assessment: 1. Atypical chest pain with neck pain and back pain likely musculoskeletal in nature; she has a known history of degenerative disc disease 2. Hypertension with side effects to multiple agents in the past 3. No history of aortic regurgitation 4. Hyponatremia 5. History of hypothyroidism, urinary incontinence, GERD 6. Diffuse atherosclerotic vascular disease in the abdominal aorta and lower extremities. No significant focal obstructive lesions noted. One vessel runoff distal left lower extremity with two-vessel runoff to the distal right lower extremity. 7. Celiac artery stenosis noted. No significant superior or inferior mesenteric artery disease detected. Recommendations: -Continue current management as per the medical team. -CT angiogram results noted -Sodium level slightly improved at 132 -Further workup for abdominal/groin pain per the medical team. Continue telemetry? Yes
[2018-02-21 22:48] VITALS: BP 152/86
[2018-02-22 06:19] VITALS: BP 110/52
--- NOTE | 2018-02-22 08:14 | PN- Housestaff ---
Jessica PORTILLO,Jef 02/22/18 0814: Subjective Follow-up For: chest pain hyponatremia Tele-Events Since Last Visit: sinus felipa/ sinus rhythm, HR 50s-60s, no events Subjective: still complaints of right hip/inguinal pain, that is worse with walking and improved with leaning forward no chest pain or other complaints Review of Systems Constitutional: Reports: see HPI. Objective Last 24 Hrs of Vital Signs/I&O Vital Signs Date Time Temp Pulse Resp B/P B/P Pulse O2 O2 Flow FiO2 Mean Ox Delivery Rate 02/22 0946 57 148/78 02/22 0940 57 148/78 02/22 0840 68 158/84 02/22 0838 68 158/84 02/22 0800 Room Air 02/22 0619 98.2 63 20 110/52 96 Room Air 02/21 2248 98.8 64 16 152/86 96 02/21 2037 84 160/66 Intake & Output 02/22 1600 02/22 0800 02/22 0000 Intake Total 125 300 Output Total 350 Balance -225 300 Intake, IV 5 Intake, Oral 120 300 Output, Urine 350 Patient 82.639 kg Weight Physical Exam General Appearance: Alert, Oriented X3, Cooperative, No Acute Distress Cardiovascular: Regular Rate, Normal S1, Normal S2, No Murmurs Lungs: Clear to Auscultation, Normal Air Movement Abdomen: Normal Bowel Sounds, Soft, No Tenderness, No Masses Extremities: No Clubbing, No Cyanosis, No Edema, Normal Pulses Current Medications: Current Medications Sig/Ava Start time Last Medication Dose Route Stop Time Status Admin Acetaminophen 650 MG Q6P PRN 02/18 2230 AC PO Albuterol Sulfate 2 PUF Q4P PRN 02/18 2315 AC INH Alprazolam 0.25 MG DAILY NEEDED PRN 02/18 2315 AC 02/20 PO 02/25 2314 0806 Aspirin 81 MG DAILY 02/22 0900 AC 02/22 PO 0840 Atorvastatin Calcium 40 MG 1700 02/22 1700 AC PO Bisacodyl 5 MG DAILY 02/19 1439 AC 02/22 PO 0840 Budesonide/ 2 PUF BID 02/19 0900 AC 02/22 Formoterol Fumarate INH 0840 Cosyntropin 0.25 MG ONE ONE 02/22 0700 DC 02/22 IV 02/22 0701 0614 Enoxaparin Sodium 40 MG DAILY 02/19 0900 AC 02/22 SC 0841 Gabapentin 100 MG Q8 02/22 0845 AC 02/22 PO 0946 Hydralazine HCl 100 MG TID 02/22 0900 AC 02/22 PO 0946 Hydrocodone Bitart/ 1 TAB Q8P PRN 02/18 2230 AC 02/22 Acetaminophen PO 0425 Levothyroxine Sodium 0.112 MG DAILY AC 02/19 0700 AC 02/22 PO 0613 Metoprolol Tartrate 25 MG BID 02/21 0915 AC 02/22 PO 0840 Omeprazole 40 MG DAILY AC 02/19 0700 AC 02/22 PO 0613 Oxycodone/ 2 TAB Q8P PRN 02/18 2230 AC 02/21 Acetaminophen PO 203 Senna 187 MG AT BEDTIME 02/19 2100 AC 02/21 PO 2034 Last 24 Hrs of Lab/Andrea Results Last 24 Hrs of Labs/Mics: Laboratory Tests 02/22/18 0800: Cortisol AM Sample Cancelled 02/22/18 0705: Anion Gap 7, Estimated GFR > 60, BUN/Creatinine Ratio 15.0, Cortisol AM Sample 31.6 H Assessment/Plan Assessment: 72 year old female with PMH of HTN, hypothyroidism, GERD, asthma, spinal degenerative disease and cervical fusion presented with multiple pain complaints including the chest and groin Chest pain: serial troponins negative for myocardial ischemia Continue aspirin, statin, beta issa Cardiology consulted, appreciate recommendations Groin pain/right hip pain: CTA aorta shows some mesenteric stenosis and peripheral vascular disease in the lower extremities, bilateral femoral artery disease but largely patent Could be related to spinal stenosis given improves with spinal flexion Start gabapentin 100mg TID Hyponatremia: Improved on fluid restriction continue to trend sodium Hold HCTZ Hypothyroidism: Continue synthroid Random cortisol level low: Outpatient endocrinology follow up to evaluate for adrenal insufficiency heart healthy diet dvt [id number] Full code Problem List: 1. Hyponatremia 2. Chest pain Pain Ratin Pain Location: right hip Pain Goal: Pain 4 or less Pain Plan: prn Tomorrow's Labs & Rationales: none, discharge Deyanira Gallo MD 02/22/18 1045: Attending MD Review Statement Attending Statement Attending MD Statement: examined this patient, discuss w/resident/PA/ADMISSIONS DIRECTOR, agreed w/resident/PA/ADMISSIONS DIRECTOR, reviewed EMR data (avail) Attending Assessment/Plan: 72F PMH HTN, asthma, hypothyroidism, GERD, diverticulitis, IBS-c, degenerative disease of lumbar spine, cervical spine surgery, admitted with complaints of occipital headache, left groin pain, and mid-sternal chest pain. Chest pain was non-exertional and not associated with SOB, diaphoresis, lightheadedness, or palpitations, and serial EKG and troponins were negative. She was incidentally found to have a sodium level of 121. Aortogram with runoff negative for obstruction. Patient feels well today. Her only complain is chronic back and left groin pain. She is otherwise well. Sodium has improved. 1. Hyponatremia 2. Hypocortisolemia 3. Left inguinal pain 4. Occipital headache 5. Chest pain at rest Plan - Endocrine as outpatient for ACTH stimulation test - Fluid restriction on discharge - Discontinue HCTZ on discharge, continue Metoprolol and Hydralazine, as well as remaining home medications - Outpatient cardiology follow up - Pending stabilization of BP, can be discharged home today
[2018-02-22 08:38] VITALS: BP 158/84
[2018-02-22 09:40] VITALS: BP 148/78
[2018-02-22 09:46] VITALS: BP 148/78
[2018-02-22] MEDS ORDERED: GABAPENTIN100 M2 PO ×2 (09:59→11:54)
--- NOTE | 2018-02-22 10:01 | Patient Discharge Instructions ---
Discharge Instructions General Discharge Information You were seen/treated for: hyponatremia Special Instructions: You had low sodium levels from too much fluid intake and your BP med HCTZ. Stop taking HCTZ and limit your water intake to 1 liter a day. For your back/hip pain, start taking gabapentin 100mg three times a day, this dose can be increased by your primary care physician if needed. If it helps your primary care may recommend further evaluation for spinal stenosis. Your cortisol levels were low and this should be evaluated by an cerner analyst. You have been given a referral to see Dr. Ohara as an outpatient. Diet Limit DAILY fluid amt to mls: 1200 Acute Coronary Syndrome Inclusion Criteria At DC or during hospital stay patient has or had the following: ACS DIAGNOSIS No Discharge Core Measures Meds if any: Prescribed or Continued at Discharge Meds if any: NOT Prescribed or Continued at Discharge Congestive Heart Failure Inclusion Criteria At DC or during hospital stay patient has or had the following: CHF DIAGNOSIS No Discharge Core Measures Meds if any: Prescribed or Continued at Discharge Meds if any: NOT Prescribed or Continued at Discharge Cerebrovascular accident Inclusion Criteria At DC or during hospital stay patient has or had the following: CVA/TIA Diagnosis No Discharge Core Measures Meds if any: Prescribed or Continued at Discharge Meds if any: NOT Prescribed or Continued at Discharge Venous thromboembolism Inclusion Criteria VTE Diagnosis No VTE Type NONE VTE Confirmed by (Test) NONE Discharge Core Measures - Per Current guidelines, there needs to be overlap - treatment for the first 5 days of Warfarin therapy. - If discharged on Warfarin prior to 5 days of - overlap therapy, the patient will need to be - assessed for post discharge needs including - *Post discharge parental anticoagulation - *Warfarin and/or parental anticoagulation education - *Follow up date to check INR post discharge At least 5 days overlap therapy as Inpatient No Meds if any: Prescribed or Continued at Discharge Note: Overlap Therapy is Warfarin and Anticoagulant Meds if any: NOT Prescribed or Continued at Discharge
--- NOTE | 2018-02-22 11:51 | PN- Cardiology ---
Subjective Subjective: Doing okay today. No chest pain or shortness of breath. Has some lower back pain. Objective Vital Signs and I&Os Vital Signs Date Time Temp Pulse Resp B/P B/P Pulse O2 O2 Flow FiO2 Mean Ox Delivery Rate 02/22 0946 57 148/78 02/22 0940 57 148/78 02/22 0840 68 158/84 02/22 0838 68 158/84 02/22 0800 Room Air 02/22 0619 98.2 63 20 110/52 96 Room Air 02/21 2248 98.8 64 16 152/86 96 02/21 2037 84 160/66 02/21 1358 98.9 61 20 120/62 97 Room Air 02/21 1212 72 122/60 Intake & Output 02/22 1600 02/22 0802/22 0000 02/21 1600 02/21 0000 Intake Total 125 300 400 100 440 Output Total 350 Balance -225 300 400 100 440 Intake, IV 5 Intake, Oral 120 300 400 100 440 Output, Urine 350 Patient 182 lb 186 lb Weight Physical Exam: General: no apparent distress. Alert. Eyes: No obvious scleral icterus. HEENT: No jugular venous distention or abnormal jugular venous pulsations. Cardiovascular: Normal intensity S1/S2. PMI not grossly displaced. Respiratory: Lungs clear to auscultation bilaterally. Abdomen: Soft, nontender with no guarding or rebound tenderness. Musculoskeletal: No clubbing or cyanosis noted Skin: warm Neurologic: No gross focal deficits noted. Lymph: No gross lymphadenopathy. Current Medications: Current Medications Sig/Ava Start time Last Medication Dose Route Stop Time Status Admin Acetaminophen 650 MG Q6P PRN 02/18 2230 AC PO Albuterol Sulfate 2 PUF Q4P PRN 02/18 2315 AC INH Alprazolam 0.25 MG DAILY NEEDED PRN 02/18 2315 AC 02/20 PO 02/25 2314 0806 Aspirin 81 MG DAILY 02/22 0900 AC 02/22 PO 0840 Atorvastatin Calcium 40 MG 1700 02/22 1700 AC PO Bisacodyl 5 MG DAILY 02/19 1439 AC 02/22 PO 0840 Budesonide/ 2 PUF BID 02/19 09 AC 02/22 Formoterol Fumarate INH 0840 Cosyntropin 0.25 MG ONE ONE 02/22 0700 DC 02/22 IV 02/22 0701 0614 Enoxaparin Sodium 40 MG DAILY 02/19 0900 AC 02/22 SC 0841 Gabapentin 100 MG Q8 02/22 0845 AC 02/22 PO 0946 Hydralazine HCl 100 MG TID 02/22 09 AC 02/22 PO 0946 Hydrocodone Bitart/ 1 TAB Q8P PRN 02/180 AC 02/22 Acetaminophen PO 0425 Levothyroxine Sodium 0.112 MG DAILY AC 02/19 07 AC 02/22 PO 0613 Metoprolol Tartrate 25 MG BID 02/21 0915 AC 02/22 PO 0840 Omeprazole 40 MG DAILY AC 02/19 07 AC 02/22 PO 0613 Oxycodone/ 2 TAB Q8P PRN 02/18 2230 AC 02/21 Acetaminophen PO 203 Senna 187 MG AT BEDTIME 02/19 2100 AC 02/21 PO 2034 Results Last 48 Hrs of Labs/Mics: Laboratory Tests 02/22/18 0800: Cortisol AM Sample Cancelled 02/22/18 0705: Anion Gap 7, Estimated GFR > 60, BUN/Creatinine Ratio 15.0, Cortisol AM Sample 31.6 H 02/21/1830: RBC 3.92 L, MCV 97.5, MCH 33.3 H, MCHC 34.2, RDW 13.1, MPV 8.1, Gran % 70.1, Lymphocytes % 14.6 L, Monocytes % 13.0 H, Eosinophils % 1.6, Basophils % 0.7, Absolute Granulocytes 4.1, Absolute Lymphocytes 0.9 L, Absolute Monocytes 0.8 H, Absolute Eosinophils 0.1, Absolute Basophils 0 02/21/18 0637: Anion Gap 11, Estimated GFR > 60, BUN/Creatinine Ratio 16.7 02/21/18 0110: Anion Gap 11, Estimated GFR > 60, BUN/Creatinine Ratio 18.6 02/20/18 1855: Anion Gap 11, Estimated GFR > 60, BUN/Creatinine Ratio 15.0 Recent Imaging Studies: Telemetry tracings are personally reviewed and shows rhythm and sinus bradycardia Assessment/Plan Assessment/Plan 1. Atypical chest pain with neck pain and back pain likely musculoskeletal in nature; she has a known history of degenerative disc disease 2. Hypertension with side effects to multiple agents in the past 3. No history of aortic regurgitation 4. Hyponatremia; improved 5. History of hypothyroidism, urinary incontinence, GERD 6. Chronic dizziness 7. Peripheral vascular disease by CT scan Patient was started on statin therapy due to the atherosclerosis seen on CT scan. Blood pressure control remains reasonable on the current regimen and agree with not resuming the hydrochlorothiazide. Sodium has improved. She is already scheduled for outpatient echocardiogram and nuclear stress test with subsequent follow-up with me. Rolan Davey MD [facility] Continue telemetry? No
[2018-02-22] MEDS ORDERED: ATORVASTATIN CA40 M1 PO (11:54)
--- NOTE | 2018-02-22 11:55 | Discharge Summary ---
Visit Information Visit Dates Admission Date: 02/18/18 Discharge Date: 02/22/18 Hospital Course Course Attending Physician: Deyanira Gallo MD Primary Care Physician: Ava PORTILLO,[place] [facility] Course: 72 year old female with PMH of HTN, hypothyroidism, GERD, asthma, spinal degenerative disease and cervical fusion presented with multiple pain complaints including left sided chest pain with palpitations, back, groin, and hip pain. The patient was admitted to telemetry for the chest pain and ruled out for myocardial ischemic with serial negative troponins and no ischemic EKG changes. Cardiology was consulted, not likely ischemic heart disease pain more likely musculoskeletal, and the patient is scheduled for outpatient echocardiogram and nuclear stress testing. The patient also had hyponatremia to 121 on presentation with trended up to 135 over several days with discontinuation of her thiazide diuretic and one liter fluid restriction in consultation with nephrology. Her serum sodiums were previously normal, renal and thyroid function normal and no evidence of heart failure or liver disease. Her FeNa was low and cortisol was also low which will need to be evaluated by endocrinology as an outpatient for ACTH stimulation testing. Her back and groin pain was evaluated with a CTA angiogram of the aorta that showed bilateral femoral artery disease but vessel patency, some mesenteric stenosis and peripheral vascular disease in the lower extremities. She was also started on statin therapy for her atherosclerotic disease demonstrated on CT. Her pain reportedly improves with flexion and worsens with flexion and the patient was started on a low dose of gabapentin for probably spinal stenosis but this could further evaluated with an MRI as an outpatient. The patient was advised to follow up with her primary care physician to monitor her serum sodium and blood pressure off hydrochlorothiazide and youth care worker for an outpatient echocardiogram and nuclear stress test. She should also follow up with Dr. Ohara for further evaluation of her low cortisol levels and possible ACTH stimulation test to evaluate for adrenal insufficiency. Allergies: Coded Allergies: ELVA Inhibitors (DIZZINESS, NAUSEA 02/18/18) valsartan (DIZZY, NAUSEA 02/18/18) Significant Procedures: CT angiogram DESCRIPTION: Routine abdominal aorta and lower extremity runoff CTA protocol with contrast was performed. 120 mL of Optiray 350 was administered. The images were reviewed and postprocessed on a dedicated 3-D workstation. Extensive vascular postprocessing was performed including 3-D volume rendered, maximum intensity projection, and curved multiplanar reformatted images COMPARISON: CT abdomen and pelvis 02/18/2018. FINDINGS: VASCULAR: 1. 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 There is excellent opacification of the distal branches of the celiac axis. The SMA is widely patent. There is atherosclerotic calcification at the origin of the ZAHIDA with some attenuation of the distal artery suggesting this may be filled via retrograde collaterals. 2. Renal Arteries: Due to the motion artifact, the distal aspects of the renal arteries could not be interrogated. There is a single right-sided renal artery which is well opacified. There are 2 left-sided renal arteries. There is at least moderate stenosis at the origin of the dominant superior left renal artery. A smaller accessory inferior left renal artery appears to be patent. 3. Infrarenal Abdominal Aorta: [id number] calcified and noncalcified atherosclerotic disease throughout the infrarenal abdominal aorta without aneurysmal dilatation or dissection. 4. Right Lower Extremity Arterial Perfusion: The right common femoral artery is heavily diseased posteriorly; however, it remains widely patent. The internal iliac artery is diseased but patent. No significant stenosis in the external iliac artery, common femoral artery, profunda femoral artery. Scattered atherosclerotic disease in the superficial femoral artery without evidence of a hemodynamically significant stenosis. The popliteal artery is patent. Below the knee, the peroneal artery is diseased with attenuated flow beyond the mid/distal calf although there is reconstitution at the ankle. The anterior tibial artery shows attenuated flow at the mid/distal calf. The posterior tibial artery is diseased with several short segment [id number] stenoses but it remains patent to the foot. 5. Left Lower Extremity Arterial Perfusion: The left common femoral artery is heavily diseased posteriorly; however, it remains widely patent. The internal iliac artery is diseased but patent. No significant stenosis in the external iliac artery, common femoral artery, profunda femoral artery. Scattered atherosclerotic disease in the superficial femoral artery without evidence of a hemodynamically significant stenosis. The popliteal artery is patent. Below the knee, the peroneal artery and anterior tibial arteries are patent to the foot. The left posterior tibial artery is diseased with significant attenuation of flow distally; however, there is good reconstitution of flow to the foot distally. NONVASCULAR: Lung Bases: The visualized lung bases are unremarkable. Small hiatal hernia. Liver, Gallbladder, and Biliary Tree: Diffusely decreased attenuation in the liver most consistent with hepatic steatosis. No focal hepatic lesions. No intrahepatic biliary ductal dilatation. The gallbladder is unremarkable with no evidence of radiopaque gallstones, gallbladder wall thickening, or obvious pericholecystic inflammatory changes. Pancreas: Unremarkable. Spleen: Unremarkable. Adrenal Glands: Unremarkable. Kidneys and Ureters: The kidneys are normal in size, shape, and attenuation. No hydronephrosis, hydroureter, or calculi seen. No perinephric stranding. Bladder: Unremarkable. Gastrointestinal Tract: The small and large bowel are unremarkable. The appendix is not well visualized, no secondary signs of an acute appendicitis. Abdominal Wall: No significant hernia is appreciated. Lymph Nodes: No abdominal or pelvic lymphadenopathy. Pelvic Viscera: No pelvic mass or free fluid. Osseous Structures: No destructive bony lesions. Degenerative changes in the spine. IMPRESSION: 1. No evidence of abdominal aortic aneurysm. Moderate atherosclerotic disease as described above. 2. Right lower extremity: No significant inflow disease. One-vessel runoff to the foot via the posterior tibial artery. 3. Left lower extremity: No significant inflow disease. Two-vessel runoff to the foot. 4. Hepatic steatosis. Disposition Summary Disposition Principal Diagnosis: Atypical chest pain Hyponatremia Additional Diagnosis: Hypertension Hypothyroidism Peripheral vascular disease Urinary incontinence GERD Degenerative disc disease with h/o cervical fusion Discharge Disposition: home or self care Discharge Instructions General Discharge Information Code Status: Full Code Patient's Diet: Heart healthy diet Patient's Activity: As tolerated Follow-Up Instructions/Appts: Follow up with your primary care physician, cardiology (Dr. Davey) for echocardiogram, nuclear stress testing, and endocrinology (Dr. Ohara) for low cortisol. Limit your fluid intake to one liter day and stop taking hydrochlorothiazide. Medications at Discharge Discharge Medications: Stop taking the following medications: Hydrochlorothiazide (Hydrochlorothiazide) 25 MG TABLET ORAL DAILY Continue taking these medications: Azelastine/Fluticasone (Dymista Nasal Plato) (Unknown Strength) SPRAY.[email or web address] Unknown Dose Both sides of nose As Directed Comments: NOT GIVEN IN HOSPITAL Fluticasone-Salmeterol (Advair 100-50 Diskus) 100 MCG-50 MCG/DOSE BLST.W.DEV 1 Puff Inhale through mouth TWICE DAILY Comments: NOT GIVEN IN HOSPITAL. PT GIVEN SYMBICORT Montelukast Sodium (Singulair) 10 MG TABLET 1 Tablet ORAL DAILY Comments: NOT GIVEN IN HOSPITAL Levothyroxine Sodium (Levothyroxine Sodium) 112 MCG TABLET 1 Tablet ORAL DAILY Comments: Last Taken: 02/22/18 Time: 6AM Estrogens, Conjugated (Premarin) 0.3 MG TABLET 1 Tablet ORAL DAILY Comments: NOT GIVEN IN HOSPITAL Metoprolol Succ XL (Toprol Xl) 50 MG TAB 1 Tablet ORAL DAILY Comments: Last Taken: 02/22/18 Time: 9AM Hydralazine HCl (Hydralazine HCl) 100 MG TABLET 1 Tablet ORAL THREE TIMES DAILY Comments: Last Taken: 02/22/18 Time: 10AM Esomeprazole (Nexium) 40 MG CAPSULE.DR 1 Capsule ORAL DAILY Comments: Last Taken: 02/22/18 Time: 6AM PT GIVEN PRILOSEC Cholecalciferol (Vitamin D3) (Vitamin D) 2,000 UNIT TABLET 1 Tablet ORAL DAILY Comments: NOT GIVEN IN HOSPITAL Cyanocobalamin (Vitamin B-12) 1,000 MCG TABLET 1 Tablet ORAL DAILY Comments: Last Taken: 02/22/18 Time: 9AM Aspirin (Ecotrin*) 81 MG TABLET.DR 1 Tablet ORAL DAILY Comments: Last Taken: 02/22/18 Time: 9AM Albuterol Sulfate (Proair Hfa) 90 MCG HFA.AER.AD 2 Puff Inhale through mouth As Directed as needed for ASTHMA Comments: NOT GIVEN IN HOSPITAL Alprazolam (Alprazolam) 0.25 MG TABLET 1 Tablet ORAL As Directed as needed for ANXIETY Comments: Last Taken: 02/20/18 Time: 8AM Glycopyrrolate (Glycopyrrolate) 2 MG TABLET 1 Tablet ORAL DAILY Comments: NOT GIVEN IN HOSPITAL Start taking the following new medications: Gabapentin (Gabapentin) 100 MG CAPSULE 1 Capsule ORAL THREE TIMES DAILY Qty = 90 No Refills Instructions: . Comments: Last Taken: 02/22/18 Time: 10AM Atorvastatin Calcium (Atorvastatin Calcium) 40 MG TABLET 1 Tablet ORAL DAILY Qty = 30 No Refills Comments: NOT GIVEN IN HOSPITAL Copies To: Esteban Davey MD; Lev PORTILLO,Harvey Hong; Ava PORTILLO,Juan Jose Phillip MD Review Statement Documenting Attending: Deyanira Gallo MD
[2018-04-12] MEDS ORDERED: PROTONIX40 M3 PO (14:47)
[2018-04-12] MEDS ORDERED: ATORVASTATIN CA80 M1 PO (14:50)
[2018-04-12] MEDS ORDERED: PLAVIX75 M1 PO (14:51)
[2018-04-12] MEDS ORDERED: XYZAL5 M1 PO (14:52)
[2018-04-12] MEDS ORDERED: PROAIR HFA8.5 GM INH (14:52)
[2018-04-12] MEDS ORDERED: LEXAPRO10 M1 PO (14:53)
[2018-04-12] MEDS ORDERED: PEPCID20 M1 PO (16:40)
[2018-04-12] MEDS ORDERED: LIDODERM1 EACH TOP (16:40)
== END 2018-02-22 14:30 | disposition home health service (06) | DRG 641 ==
LOC: ERH 16:53 → ERHI 21:44 → ENRESERV 22:37 → 1NO 02-19 00:14 → ENPENDDIS 02-22 11:55 → 1NO 02-22 14:30
PROVIDERS: Internal Medicine Hematology & Oncology; Physician Assistant Medical; Student in an Organized Health Care Education/Training Program
DX: E87.1 Hypo-osmolality and hyponatremia (principal); E03.9 Hypothyroidism, unspecified; I10 Essential (primary) hypertension; M54.9 Dorsalgia, unspecified; R10.30 Lower abdominal pain, unspecified; T50.2X5A Adverse effect of carbonic-anhydrase inhibitors, benzothiadiazides and other diuretics, initial encounter; R51 Headache; R07.89 Other chest pain; J45.909 Unspecified asthma, uncomplicated; K58.1 Irritable bowel syndrome with constipation; R32 Unspecified urinary incontinence; K21.9 Gastro-esophageal reflux disease without esophagitis; R42 Dizziness and giddiness; I73.9 Peripheral vascular disease, unspecified; M51.36 Other intervertebral disc degeneration, lumbar region; Z79.82 Long term (current) use of aspirin; Z87.440 Personal history of urinary (tract) infections; L71.9 Rosacea, unspecified
CPT/HCPCS: 1NSP; 84133; 84300; ERO; 36415; 36592; 71045; 74176; 81003; 82436; 82570; 93005; 93010; 97116-GO; 97161-GP; 97530-GO; J0834; J1650; J2405; J3490; J7040